=== PATIENT | male | born 1990 | race Caucasian/White ===

== ENCOUNTER 2020-05-03 13:50 | Emergency (ER) | payer SELFPAY ==
[2020-05-03 13:55] VITALS: BP 117/85; PULSE 81; RESP 16; TEMP 36.5; O2SAT 96; BMI 23.9
[2020-05-03 15:09] LABS: MANUAL DIFF FLAG NO
[2020-05-03 15:11] LABS: Basophils Percent Auto 0.6 % (0-2); Eosinophils Percent Auto 0.9 % (0-4); Hematocrit 47.1 % (42-52); Hemoglobin 15.5 g/dl (14.0-18.0); Lymphocytes Absolute Auto 1.1 X10*3/uL (1.2-4.9); Lymphocytes Percent Auto 32.7 % (20-40); Mean Corpuscular HGB Conc 32.9 g/dl (31.0-36.0); Mean Corpuscular Hemoglobin 29.2 pg (27.0-33.0); Mean Corpuscular Volume 88.7 fL (80-98); Mean Platelet Volume 9.5 fL (9.4-12.4); Monocytes Absolute Auto 0.4 X10*3/uL (0.1-1.2); Monocytes Percent Auto 10.9 % (2-11); Neutrophils Absolute Auto 1.8 X10*3/uL (2.0-8.3); Neutrophils Percent Auto 54.9 % (45-73); Platelet Count 221 X10*3/uL (160-400); Red Blood Count 5.31 X10*6/uL (4.60-5.80); Red Cell Distribution Width 12.3 % (11.0-16.0); White Blood Count 3.2 X10*3/uL (4.8-10.8)
[2020-05-03 15:38] LABS: Anion Gap 11 (12-20); Blood Urea Nitrogen 8 mg/dL (9-16); Calcium 9.6 mg/dL (8.4-10.2); Carbon Dioxide 29 mmol/L (22-29); Chloride 102 mmol/L (96-108); Creatinine Clr Calc Pharmacy 125.5; Estimated Glomerular Filt Rate > 60; Glucose Random 94 mg/dL (60-115); Lipase 18 U/L (8-78); Potassium 4.4 mmol/L (3.3-5.1); Sodium 138 mmol/L (135-145)
--- NOTE | 2020-05-03 16:35 | ED_ITS ---
HPI - Nausea/Vomiting/Diarrhea General Chief complaint: Nausea/Vomiting/Diarrhea Stated complaint: weakness, loss of appetite, abd pain Time Seen by Provider: 05/03/20 16:31 Source: patient Mode of arrival: ambulatory Limitations: no limitations History of Present Illness HPI Narrative: This is a 30-year-old male who otherwise described himself as relatively healthy history of celiac disease and appendectomy presenting with complaint of 2 days of epigastric discomfort with eating that makes him nauseated. States has not had any diarrhea last bowel movement was this morning and soft. He denies any recent travel, sick contacts, fever. Triage note reviewed he notes patient states he is unable to ?swallow fela d....feels like it gets stuck? tells me that he is able to drink water and eat soup since such however when he eats solids he will feel more nauseated and bloated in the of the gastroc. MD elicited complaint: nausea and vomiting Description of vomiting: food contents Associated nausea: Yes Associated abdominal pain: Yes Location of pain: epigastric Radiation: epigastric Pain consistency: intermittent Severity: mild Quality: aching Associated symptoms: denies other symptoms Related Data Previous Rx's Medication Instructions Recorded ondansetron HCl [Zofran] 4 mg PO Q8H PRN #10 tab 05/03/20 Allergies Allergy/AdvReac Type Severity Reaction Status Date / Time egg [EGG] Allergy Severe SWELLING, Verified 05/03/20 14:08 HIVES Review of Systems Review of Systems: Constitutional: No Weight loss, No Fever, No Chills, No Night Sweats, No Fatigue, No Malaise ENT/Mouth: No Hearing loss, No Ear Pain, No Nasal Congestion, No Sinus Pain, No Hoarseness, No sore throat, No Rhinorrhea, No Swallowing Difficulty Eyes: No Eye Pain, No Swelling, No Redness, No Foreign Body, No Discharge, No Vision Changes Cardiovascular: No Chest Pain, No SOB, No Dyspnea on Exertion, No Orthopnea, No Edema, No Palpitations Respiratory: No Cough, No Sputum, No Wheezing, No Smoke Exposure, No Dyspnea Gastrointestinal: As noted per HPI, no constipation, No Hematochezia, No Melena Genitourinary: No Dysuria, No Urinary Frequency, No Hematuria, No Urinary Incontinence, No Urgency, No Flank Pain, No Urinary Flow Changes, No Hesitancy Musculoskeletal: No joint pain, No Myalgias, No Joint Swelling Skin: No Skin Lesions, No rash Neuro: No Weakness, No Numbness, No Paresthesias, No Loss of Consciousness, No Dizziness, No Headache Psych: No Social Issues Heme/Lymph: No Bruising, No Bleeding,No Lymphadenopathy Endocrine: No Polyuria, No Polydipsia, No Temperature Intolerance Yes all other systems are reviewed and are negative Gastrointestinal: Gastrointestinal: Reports nausea PMFSH Past Medical History Medical History Celiac disease H/O iron deficiency anemia Surgical History History of appendectomy Social History Social History Alcohol intake: never Smoking Status: Never smoker Use of substances other than those prescribed or required for medical reasons: Yes Substance Use Type: Marijuana Advance Directives: No Advance Directives Information Provided: Yes Physical Exam Vital Signs: Vital Signs: Last Vital Signs Temp 97.7 F 05/03/20 13:55 Pulse 81 05/03/20 13:55 Resp 16 05/03/20 13:55 BP 117/85 05/03/20 13:55 Pulse Ox 96 05/03/20 13:55 Body Mass Index 23.9 Reviewed Const: Other: Walking, sitting up on side of the stretcher drinking bottled water. General: cooperative and healthy appearing; No acute distress or intoxicated appearing Nutritional Appearance: average body habitus Orientation/consciousness: patient oriented x3 HENMT: Head: Yes normal to inspection Ears: hearing grossly normal bilat erally Eyes: General: appearance normal, both eyes and all related structures Visual Martinez: normal visual martinez by confrontation Neck: Neck: Yes normal visual inspection, No positive Brudzinski's sign, No positive Kernig's sign and No tender Thyroid: Thyroid normal Chest: Chest palpation & inspection: normal inspection of the chest Resp: Effort & Inspection: normal respiratory effort Auscultation: clear to auscultation bilaterally Cardio: Jugular venous distension: no JVD Rhythm: regular rhythm Heart sounds: S1 normal heart sound present and S2 normal heart sound present GI: Inspection: Yes normal to inspection Palpation (GI): Soft to palpation, nontender, no guarding, not rigid, hepatosplenomegaly present and no masses Percussion: Yes normal to percussion Auscultation: normal bowel sounds : General: Yes no CVA tenderness Back/Spine/Pelvis: Back: no CVA tenderness Skin: General skin exam: no rashes or lesions noted Neuro: General: patient oriented x3 Extrem: General: Yes normal to inspection Course Course Course Narrative: AP consistent with gastritis versus gastroenteritis overall nontoxic appearing. Labs overall stable, COVID negative. He is currently eating and drinking without any evidence of food bolus or obstruction. Abdominal exam remains benign. Will discharge home with short course Zofran, clear return follow-up instructions. MDM - Nausea/Vomiting/Diarrhea Differential Diagnosis Differential diagnosis: Likely food poisoning and gastroenteritis; Unlikely traveler's diarrhea, clostridium difficile infection, drug-induced nausea and vomiting and dehydration Medical Records Attestation: I reviewed the patient's medical records. Lab Data Attestation: I reviewed the patient's lab results. Result diagrams: 05/03/20 15:04 05/03/20 15:04 Labs: Lab Results 05/03/20 05/03/20 05/03/20 Range/Units 15:04 15:04 15:04 WBC 3.2 L (4.8-10.8) X10*3/uL RBC 5.31 (4.60-5.80) X10*6/uL Hgb 15.5 (14.0-18.0) g/dl Hct 47.1 (42-52) % MCV 88.7 (80-98) fL MCH 29.2 (27.0-33.0) pg MCHC 32.9 (31.0-36.0) g/dl RDW 12.3 (11.0-16.0) % Plt Count 221 (160-400) X10*3/uL MPV 9.5 (9.4-12.4) fL Immature Gran % (Auto) 0.0 (0.0-0.4) % Neut % (Auto) 54.9 (45-73) % Lymph % (Auto) 32.7 (20-40) % [place] % (Auto) 10.9 (2-11) % Eos % (Auto) 0.9 (0-4) % Baso % (Auto) 0.6 (0-2) % Lymph # (Auto) 1.1 L (1.2-4.9) X10*3/uL [place] # (Auto) 0.4 (0.1-1.2) X10*3/uL Eos # (Auto) 0.0 (0.0-0.4) X10*3/uL Baso # (Auto) 0.0 (0.0-0.2) X10*3/uL Abs Immat Gran (auto) 0.00 (0.00-0.03) X10*3/uL Absolute Neuts (auto) 1.8 L (2.0-8.3) X10*3/uL Absolute Nucleated RBC 0.000 (0.0-0.012) X10*3/uL Nucleated RBC % (auto) 0.0 (0.0-0.2) /100WBC Hold Purple Top SEE NOTE Hold Blue Top Sodium 138 (135-145) mmol/L Potassium 4.4 (3.3-5.1) mmol/L Chloride 102 (96-108) mmol/L Carbon Dioxide 29 (22-29) mmol/L Anion Gap 11 L (12-20) BUN 8 L (9-16) mg/dL Creatinine 0.99 (0.5-1.4) mg/dL Estim Creat Clear Calc 125.5 Estimated GFR > 60 Random Glucose 94 (60-115) mg/dL Calcium 9.6 (8.4-10.2) mg/dL Total Bilirubin 1.1 H (0.0-1.0) mg/dL Direct Bilirubin 0.4 (0.0-0.5) mg/dL AST 23 (5-37) U/L ALT 22 (0-40) U/L Alkaline Phosphatase 77 (39-117) U/L Total Protein 8.3 H (6.5-8.0) g/dL Albumin 5.1 H (3.5-5.0) g/dL Lipase 18 (8-78) U/L Coronavirus (PCR) (Negative) Influenza Type A (PCR) (Negative) Influenza Type B (PCR) (Negative) RSV RNA Qual (PCR) (Negative) 05/03/20 05/03/20 Range/Units 15:04 16:50 WBC (4.8-10.8) X10*3/uL RBC (4.60-5.80) X10*6/uL Hgb (14.0-18.0) g/dl Hct (42-52) % MCV (80-98) fL MCH (27.0-33.0) pg MCHC (31.0-36.0) g/dl RDW (11.0-16.0) % Plt Count (160-400) X10*3/uL MPV (9.4-12.4) fL Immature Gran % (Auto) (0.0-0.4) % Neut % (Auto) (45-73) % Lymph % (Auto) (20-40) % [place] % (Auto) (2-11) % Eos % (Auto) (0-4) % Baso % (Auto) (0-2) % Lymph # (Auto) (1.2-4.9) X10*3/uL [place] # (Auto) (0.1-1.2) X10*3/uL Eos # (Auto) (0.0-0.4) X10*3/uL Baso # (Auto) (0.0-0.2) X10*3/uL Abs Immat Gran (auto) (0.00-0.03) X10*3/uL Absolute Neuts (auto) (2.0-8.3) X10*3/uL Absolute Nucleated RBC (0.0-0.012) X10*3/uL Nucleated RBC % (auto) (0.0-0.2) /100WBC Hold Purple Top Hold Blue Top SEE NOTE Sodium (135-145) mmol/L Potassium (3.3-5.1) mmol/L Chloride (96-108) mmol/L Carbon Dioxide (22-29) mmol/L Anion Gap (12-20) BUN (9-16) mg/dL Creatinine (0.5-1.4) mg/dL Estim Creat Clear Calc Estimated GFR Random Glucose (60-115) mg/dL Calcium (8.4-10.2) mg/dL Total Bilirubin (0.0-1.0) mg/dL Direct Bilirubin (0.0-0.5) mg/dL AST (5-37) U/L ALT (0-40) U/L Alkaline Phosphatase (39-117) U/L Total Protein (6.5-8.0) g/dL Albumin (3.5-5.0) g/dL Lipase (8-78) U/L Coronavirus (PCR) NEGATIVE (Negative) Influenza Type A (PCR) NEGATIVE (Negative) Influenza Type B (PCR) NEGATIVE (Negative) RSV RNA Qual (PCR) NEGATIVE (Negative) Discharge Plan Discharge Clinical Impression: Gastroenteritis Patient Disposition: Home, Self-Care Instructions: Acute Nausea and Vomiting (ED) Additional Instructions: Your blood work was overall reassuring Your COVID test was negative Gradually increase her diet as reviewed Return if any concerns or worsening symptoms Otherwise follow-up as instructed Thank you Prescriptions: New ondansetron HCl [Zofran] 4 mg tablet 4 mg PO Q8H PRN (Reason: nausea and vomiting) Qty: 10 RF: 0 Referrals: ED Physician,Generic [Emergency Provider] - 1 week (Your primary care doctor)
[2020-05-03 17:01] LABS: Alanine Aminotransferase 22 U/L (0-40); Albumin Level 5.1 g/dL (3.5-5.0); Alkaline Phosphatase 77 U/L (39-117); Aspartate Amino Transferase 23 U/L (5-37); Bilirubin Direct 0.4 mg/dL (0.0-0.5); Bilirubin Total 1.1 mg/dL (0.0-1.0); Total Protein 8.3 g/dL (6.5-8.0)
[2020-05-03 17:53] LABS: Influenza A PCR NEGATIVE (Negative); Influenza B PCR NEGATIVE (Negative); Resp Syncy Virus RNA Qual PCR NEGATIVE (Negative); SARS COV2 PCR INHOUSE NEGATIVE (Negative)
== END 2020-05-03 18:59 | disposition home or self-care (01) ==
PROVIDERS: Nurse Practitioner Primary Care; Emergency Provider Internal Medicine
DX: K52.9 Noninfective gastroenteritis and colitis, unspecified (principal); K90.0 Celiac disease; F12.90 Cannabis use, unspecified, uncomplicated; Z20.822 Contact with and (suspected) exposure to COVID-19
CPT/HCPCS: 0241U; 36415; 80048; 80076; 83690; 85025; 99283; 99284

== ENCOUNTER 2021-06-11 10:30 | Emergency (ER) | payer SELFPAY ==
[2021-06-11 10:41] VITALS: BP 120/82; PULSE 82; RESP 20; TEMP 35.9; O2SAT 98; BMI 19.9
[2021-06-11] MEDS: Lidocaine HCl 1 % MPF 5 ML VIAL SUBCUT (11:30)
--- NOTE | 2021-06-11 13:34 | ED_ITS ---
HPI - Ear Problem General Chief complaint: Ear Problems Stated complaint: Swollen earlobe Time Seen by Provider: 06/11/21 11:07 Source: patient Mode of arrival: ambulatory History of Present Illness HPI Narrative: 31-year-old male with a past medical history of celiac disease, iron deficiency anemia, presenting to the ED complaining of swollen, pain, and erythema to left ear x3 days. Denies trauma, injury, drainage from area, new piercing, drainage from ear, hearing loss, fever, chills Complaint: ear pain Location: left ear Duration: constant Related Data Previous Rx's Medication Instructions Recorded ondansetron HCl 4 mg tablet 4 mg PO Q8H PRN #10 tab 05/03/20 (Zofran) cephalexin 500 mg capsule 500 mg PO QID 7 Days #28 cap 06/11/21 doxycycline hyclate 100 mg tablet 100 mg PO BID 7 Days #14 tab 06/11/21 Allergies Allergy/AdvReac Type Severity Reaction Status Date / Time egg [EGG] Allergy Severe SWELLING, Verified 05/03/20 14:08 HIVES Review of Systems Review of Systems: Constitutional: No Fever, No Chills ENT/Mouth: + Ear Pain, No Nasal Congestion, No Sinus Pain, No Hoarseness, No sore throat, No Rhinorrhea, No Swallowing Difficulty Cardiovascular: No Chest Pain, No SOB Respiratory: No Cough, No Sputum, Gastrointestinal: No Nausea, No Vomiting, No Diarrhea, No Constipation, No Abdominal pain Genitourinary:, No Dysuria, No Urinary Frequency, No Flank Pain Musculoskeletal: No joint pain, No Myalgias, No Joint Swelling Skin: +Skin Lesions, No rash Neuro: No Weakness, No Numbness, No Paresthesias Yes all other systems are reviewed and are negative [facility] [place] Past Medical History Attestation statement: The following information was validated with the patient. Medical History Celiac disease H/O iron deficiency anemia Surgical History History of appendectomy Social History Social History Alcohol intake: never Substance Use Type: Marijuana Advance Directives: No Physical Exam Vital Signs: Vital Signs: Last Vital Signs Temp 96.7 F L 06/11/21 10:41 Pulse 82 06/11/21 10:41 Resp 20 06/11/21 10:41 BP 120/82 06/11/21 10:41 Pulse Ox 98 06/11/21 10:41 BMI result Body Mass Index 19.9 Const: General: cooperative, healthy appearing and no acute distress [place] ation/consciousness: patient oriented x3 Limitations: no limitations HEENT: Other: Please refer to imaged above, earlobe with notable fluctuant abscess, +pointing,+overlying erythema extending behind ear with tenderness. + tender to palpation. No streaking. No mastoid swelling Head: Yes normal to inspection Ears: hearing grossly normal bilaterally and TM's normal bilaterally General nose exam: Normal external nose present Face and sinus: Yes normal facial exam Eyes: General: appearance normal, both eyes and all related structures EOM: EOMs intact bilaterally Neck: Neck: Yes normal visual inspection, Yes no meningeal signs, Yes trachea midline, Yes supple, No anterior neck swelling and No midline deformity Resp: Effort & Inspection: normal respiratory effort, no respiratory distress and no stridor Cardio: Rate: regular rate Heart sounds: S1 normal heart sound present and S2 normal heart sound present Skin: Rashes: no rashes Wounds: no wounds Neuro: General: patient oriented x3 and no meningeal signs Gait exam (Neuro): Normal gait present Extrem: General: Yes normal to inspection Procedures Abscess I/D Site: other (ear) Side (if applicable): left Local Anesthetic: lidocaine 1% Amount of anesthesia used (mL): 3 Technique: incised with blade Sent for culture/gram staining?: No Packing used?: none MDM - Ear MDM Narrative Medical decision making narrative: 31-year-old male with a past medical history of celiac disease, iron deficiency anemia, presenting to the ED complaining of swollen, pain, and erythema to left ear x3 days. On exam vital signs stable, NAD, please refer to image above, concern for abscess with overlying cellulitis to left ear lobe. Low concern for mastoiditis or otitis Plan: I & D, p.o. antibiotics Medical Records Attestation: I reviewed the patient's medical records. Lab Data Attestation: I reviewed the patient's lab results. Discharge Plan Discharge Clinical Impression: Abscess of left earlobe, Cellulitis Patient Disposition: Home, Self-Care Instructions: Cellulitis (DC), Abscess (ED), Abscess Follow-up (ED) Additional Instructions: You have an abscess of your left ear that was drained today in the ED. It is also infected. Doxycycline and Keflex are antibiotics piece take as prescribed. It is normal for the area to slightly drain for the next 48 hours, if it begins to drain pus, you fevers, redness behind her ear is spreading or worsening, pain becomes unbearable please return to the emergency department Please take Tylenol Motrin for pain Please follow-up with her doctor for re-evaluation in 2-3 days. Prescriptions: New cephalexin 500 mg capsule 500 mg PO QID 7 Days Qty: 28 0RF doxycycline hyclate 100 mg tablet 100 mg PO BID 7 Days Qty: 14 0RF No Action ondansetron HCl [Zofran] 4 mg tablet 4 mg PO Q8H PRN (Reason: nausea and vomiting) Qty: 10 0RF Referrals: Physician,None [Primary Care Provider] - 3 days (For re-evaluation)
== END 2021-06-11 13:51 | disposition home or self-care (01) ==
PROVIDERS: Emergency Provider Emergency Medicine
DX: H66.42 Suppurative otitis media, unspecified, left ear (principal); H60.12 Cellulitis of left external ear
CPT/HCPCS: 69000; 99283; 99284

== ENCOUNTER 2021-10-14 09:07 | Emergency (ER) | payer MEDICAID, SELFPAY ==
--- NOTE | ~2021-10-14 | XR_ITS ---
EXAMINATION: XR CHEST CLINICAL INFORMATION: Shortness of breath COMPARISON: None TECHNIQUE: Frontal view of the chest was obtained. FINDINGS: Lungs grossly clear. Heart and pulmonary vessels normal. XR/XR chest 1V IMPRESSION: Unremarkable examination.
[2021-10-14 09:12] VITALS: BP 126/81; PULSE 78; RESP 16; TEMP 36.6; O2SAT 97
--- NOTE | 2021-10-14 09:27 | ED_ITS ---
HPI - Nausea/Vomiting/Diarrhea General Chief complaint: Nausea/Vomiting/Diarrhea Stated complaint: nauseous, feels like something is stuck in throat Time Seen by Provider: 10/14/21 09:24 Source: patient Mode of arrival: ambulatory Limitations: no limitations History of Present Illness MD elicited complaint: nausea, vomiting and abdominal pain Onset (ago): day(s) (3) Description of vomiting: watery Associated nausea: Yes Associated abdominal pain: Yes Location of pain: epigastric Pain consistency: intermittent Severity: moderate Quality: stabbing Exacerbating factors: eating Relieving factors: none Context: other (wakes up in the AM like this - shaky with nausea and vomiting) Associated symptoms: loss of appetite, malaise, nausea/vomiting, shortness of breath and anxiety Related Data Previous Rx's Medication Instructions Recorded ondansetron HCl 4 mg tablet 4 mg PO Q8H PRN nausea and 05/03/20 (Zofran) vomiting #10 tabs cephalexin 500 mg capsule 500 mg PO QID 7 days #28 caps 06/11/21 doxycycline hyclate 100 mg tablet 100 mg PO BID 7 days #14 tabs 06/11/21 metoclopramide HCl 10 mg tablet 10 mg PO TID PRN nausea and 10/14/21 (Reglan) vomiting #30 tabs omeprazole 20 mg capsule,delayed 20 mg PO DAILY #14 caps 10/14/21 release ondansetron 4 mg disintegrating 4 mg PO Q8H PRN nausea and 10/14/21 tablet vomiting #20 tabs Allergies Allergy/AdvReac Type Severity Reaction Status Date / Time egg [EGG] Allergy Severe SWELLING, Verified 05/03/20 14:08 BRISA Review of Systems Review of Systems: Constitutional : No Weight loss, No Fever, No Chills ENT/Mouth : No sore throat, No Rhinorrhea Eyes: No Swelling, No Redness Cardiovascular : No Chest Pain, pos SOB, NoEdema Respiratory : No Cough, No Sputum, No Wheezing Gastrointestinal : Positive Nausea, Positive Vomiting, no Diarrhea, positive abdominal Pain, No Hematochezia, No Melena Genitourinary : No Dysuria, No Urinary Frequency, No Hematuria, No Urgency Musculoskeletal : No joint pain, No Myalgias, No Joint Swelling Skin : No Skin Lesions, No rash Neuro : No Weakness, No Numbness, No Dizziness, No Headache Psych : No Anxiety/Panic, No Depression Heme/Lymph: No Bruising, No Lymphadenopathy Endocrine : No Polyuria, No Polydipsia All other systems reviewed and are negative. Gastrointestinal: Gastrointestinal: Reports nausea PMFSH Past Medical History Attestation statement: The following information was validated with the patient. Medical History (Updated 10/14/21 @ 12:29 by Rachel Flanagan DO) Celiac disease H/O iron deficiency anemia Pneumothorax Surgical History History of appendectomy Social History Social History (Updated 10/14/21 @ 09:52 by Rachel Flanagan DO) Alcohol intake: never Patient Tobacco Use Status: Never used Tobacco Use of substances other than those prescribed or required for medical reasons: Yes Substance Use Type: Marijuana Substance Use Frequency: Occasionally Advance Directives: No Advance Directives Information Provided: Yes Physical Exam Vital Signs: Vital Signs: Last Vital Signs Temp 98.2 F 10/14/21 11:13 Pulse 62 10/14/21 11:13 Resp 16 10/14/21 11:13 BP 128/84 10/14/21 11:13 Pulse Ox 94 10/14/21 11:13 O2 Del Method 10/14/21 11:13 BMI result Body Mass Index 20.0 Appearance: Alert. Oriented X3. No acute distress. Anxious Eyes: Pupils equal, round and reactive to light. ENT: Pharynx normal. Neck: Normal inspection. Neck supple. CVS: Normal heart rate and rhythm. Pulses normal. Respiratory: No respiratory distress. Breath sounds normal. Abdomen: Soft and ttp in epigastric area no rebound Skin: Skin warm and dry. Normal skin color. Normal skin turgor. Extremities: No lower extremity edema. No calf ttp Neuro: Oriented X 3. No motor deficit. No sensory deficit. Course Course Course Narrative: labs stable, not toxic, feels better - can be discharged at this time, no further emesis MDM - Nausea/Vomiting/Diarrhea MDM Narrative Medical decision making narrative: 31 yo male with hx of celiac disease comes in with 3 days of epigastric pain n/v and chills at this time labs, CXR, COVID swab - IVF, pepcid, reglan/benadryl - possible gastritis/GERD/pancreatitis. Lab Data Result diagrams: 10/14/21 09:50 10/14/21 09:50 Labs: Lab Results 10/14/21 10/14/21 10/14/21 Range/Units 09:46 09:50 09:50 WBC 3.5 L (4.8-10.8) X10*3/uL RBC 5.42 (4.60-5.80) X10*6/uL Hgb 16.0 (14.0-18.0) g/dl Hct 46.8 (42.0-52.0) % MCV 86.3 (80.0-98.0) fL MCH 29.5 (27.0-33.0) pg MCHC 34.2 (31.0-36.0) g/dl RDW 12.4 (11.0-16.0) % Plt Count 218 (160-400) X10*3/uL MPV 9.7 (9.4-12.4) fL Immature Gran % (Auto) 0.0 (0.0-0.4) % Neut % (Auto) 50.3 (45-73) % Lymph % (Auto) 37.6 (20-40) % [place] % (Auto) 9.2 (2-11) % Eos % (Auto) 2.0 (0-4) % Baso % (Auto) 0.9 (0-2) % Lymph # (Auto) 1.3 (1.2-4.9) X10*3/uL [place] # (Auto) 0.3 (0.1-1.2) X10*3/uL Eos # (Auto) 0.1 (0.0-0.4) X10*3/uL Baso # (Auto) 0.0 (0.0-0.2) X10*3/uL Abs Immat Gran (auto) 0.00 (0.00-0.03) X10*3/uL Absolute Neuts (auto) 1.8 L (2.0-8.3) x10*3/uL Absolute Nucleated RBC 0.000 (0.0-0.012) X10*3/uL Nucleated RBC % (auto) 0.0 (0.0-0.2) /100WBC Sodium 140 (135-145) mmol/L Potassium 3.9 (3.3-5.1) mmol/L Chloride 105 (96-108) mmol/L Carbon Dioxide 26 (22-29) mmol/L Anion Gap 13 (12-20) BUN 7 L (9-16) mg/dL Creatinine 1.01 (0.5-1.4) mg/dL Estim Creat Clear Calc 105.2 Estimated GFR > 60 Random Glucose 105 (60-115) mg/dL Calcium 9.1 (8.4-10.2) mg/dL Magnesium 1.9 (1.6-2.6) mg/dL Total Bilirubin 0.5 (0.0-1.0) mg/dL Direct Bilirubin 0.2 (0.0-0.5) mg/dL AST 19 (5-37) U/L ALT 19 (0-40) U/L Alkaline Phosphatase 88 (39-117) U/L Total Protein 7.4 (6.5-8.0) g/dL Albumin 4.4 (3.5-5.0) g/dL Lipase 18 (8-78) U/L COVID-19 (TONI) Negative (Negative) COVID-19 Clin Com See Note Discharge Plan Discharge Clinical Impression: Acute epigastric pain Vomiting Qualifiers: Vomiting type: unspecified Nausea presence: with nausea Qualified Code(s): R11.2 - Nausea with vomiting, unspecified Patient Disposition: Home, Self-Care Instructions: Acute Nausea and Vomiting (ED), Abdominal Pain (ED) Additional Instructions: return to ED for any worsening symptoms or concerns please follow up with GI doctor Prescriptions: New ondansetron 4 mg tablet,disintegrating 4 mg PO Q8H PRN (Reason: nausea and vomiting) Qty: 20 0RF metoclopramide HCl [Reglan] 10 mg tablet 10 mg PO TID PRN (Reason: nausea and vomiting) Qty: 30 0RF Rx Instructions: take if zofran isn't working omeprazole 20 mg capsule,delayed release(DR/EC) 20 mg PO DAILY Qty: 14 0RF No Action ondansetron HCl [Zofran] 4 mg tablet 4 mg PO Q8H PRN (Reason: nausea and vomiting) Qty: 10 0RF cephalexin 500 mg capsule 500 mg PO QID 7 Days Qty: 28 0RF doxycycline hyclate 100 mg tablet 100 mg PO BID 7 Days Qty: 14 0RF Referrals: Selma Brody MD [Physician] - 2 weeks Stand Alone Forms: Work/School Release
[2021-10-14 09:56] LABS: MANUAL DIFF FLAG NO
[2021-10-14 09:57] LABS: Basophils Percent Auto 0.9 % (0-2); Eosinophils Absolute Auto 0.1 X10*3/uL (0.0-0.4); Hematocrit 46.8 % (42.0-52.0); Lymphocytes Absolute Auto 1.3 X10*3/uL (1.2-4.9); Lymphocytes Percent Auto 37.6 % (20-40); Mean Corpuscular HGB Conc 34.2 g/dl (31.0-36.0); Mean Corpuscular Hemoglobin 29.5 pg (27.0-33.0); Mean Corpuscular Volume 86.3 fL (80.0-98.0); Mean Platelet Volume 9.7 fL (9.4-12.4); Monocytes Absolute Auto 0.3 X10*3/uL (0.1-1.2); Monocytes Percent Auto 9.2 % (2-11); Neutrophils Absolute Auto 1.8 x10*3/uL (2.0-8.3); Neutrophils Percent Auto 50.3 % (45-73); Platelet Count 218 X10*3/uL (160-400); Red Blood Count 5.42 X10*6/uL (4.60-5.80); Red Cell Distribution Width 12.4 % (11.0-16.0); White Blood Count 3.5 X10*3/uL (4.8-10.8)
[2021-10-14 10:13] LABS: Alanine Aminotransferase 19 U/L (0-40); Albumin Level 4.4 g/dL (3.5-5.0); Alkaline Phosphatase 88 U/L (39-117); Anion Gap 13 (12-20); Aspartate Amino Transferase 19 U/L (5-37); Bilirubin Direct 0.2 mg/dL (0.0-0.5); Bilirubin Total 0.5 mg/dL (0.0-1.0); Blood Urea Nitrogen 7 mg/dL (9-16); Calcium 9.1 mg/dL (8.4-10.2); Carbon Dioxide 26 mmol/L (22-29); Chloride 105 mmol/L (96-108); Creatinine Clr Calc Pharmacy 105.2; Estimated Glomerular Filt Rate > 60; Glucose Random 105 mg/dL (60-115); Lipase 18 U/L (8-78); Magnesium 1.9 mg/dL (1.6-2.6); Potassium 3.9 mmol/L (3.3-5.1); Sodium 140 mmol/L (135-145); Total Protein 7.4 g/dL (6.5-8.0)
[2021-10-14 10:18] LABS: COVID-19 Test Negative (Negative)
[2021-10-14] MEDS: diphenhydrAMINE HCL 50 MG/ML VIAL 25 MG IVPUSH (11:07)
[2021-10-14] MEDS: Lactated Ringers 1,000 ML 999 ML IV (11:08)
[2021-10-14] MEDS: Famotidine/PF 20 MG/2 ML VIAL IVPUSH (11:08)
[2021-10-14 11:13] VITALS: BP 128/84; PULSE 62; RESP 16; TEMP 36.8; O2SAT 94
--- NOTE | 2021-10-14 11:17 | PC.NURSE ---
patient a/ox4 . pearrlla . lungs clears . heart beat regular at 65 beats skin warm and appropriate for ethnicity . abdomen soft and patient reports rebound tenderness on palpitation . hypoactive bowel sounds noted in all quadrants . patient reports bowel movement two days ago . Iv placed . medication administered as ordered . patient aware of plan of care .
[2021-10-14 13:16] VITALS: BP 124/83; PULSE 61; RESP 14
== END 2021-10-14 13:17 | disposition home or self-care (01) ==
PROVIDERS: Emergency Provider Emergency Medicine
DX: R11.2 Nausea with vomiting, unspecified (principal); R06.02 Shortness of breath; R10.13 Epigastric pain; Z20.822 Contact with and (suspected) exposure to COVID-19; Z79.899 Other long term (current) drug therapy
CPT/HCPCS: 71045; 80048; 80076; 83690; 83735; 85025; 87635; 96374; 96375; 99284; J1200

== ENCOUNTER 2022-05-31 22:17 | Emergency (ER) | payer OTHER, SELFPAY ==
--- NOTE | ~2022-05-31 | XR_ITS ---
EXAMINATION: XR ANKLE, LEFT CLINICAL INFORMATION: Pain COMPARISON: Ankle radiographs 12/08/2013 TECHNIQUE: Three views of the left ankle. FINDINGS: Marked soft tissue swelling overlying the lateral aspect of the ankle. There is no definite acute fracture identified however given degree of soft tissue swelling a radiographically occult nondisplaced distal fibular fracture would be difficult to exclude. Achilles tendon enthesopathy. No tibiotalar joint effusion. Ankle mortise is congruent. Joint spaces are maintained. XR/XR ankle LT min 3V IMPRESSION: Marked soft tissue swelling overlying the lateral aspect of the ankle. There is no definite acute fracture identified however given degree of soft tissue swelling a radiographically occult nondisplaced distal fibular fracture would be difficult to exclude. Consider follow-up radiographs in 2 weeks to assess for any interval healing of a radiographically occult fracture.
[2022-05-31 22:29] VITALS: BP 120/71; PULSE 102; RESP 18; TEMP 36.4; O2SAT 97; BMI 21.1
--- NOTE | 2022-06-01 00:22 | ED.LOWEXIN ---
HPI - Extremity Injury (Lower) General Chief Complaint: Extremity Injury, Lower Stated Complaint: swollen left ankle Time Seen by Provider: 06/01/22 00:22 Source: patient Mode of arrival: wheelchair Limitations: no limitations History of Present Illness HPI Narrative: 32-year-old male presents with left ankle pain and swelling after rolling his ankle while playing basketball earlier today. Patient is unable to bear weight. MD complaint: ankle injury Onset (ago): hour(s) (Within the hour of arrival) Injury: Left: ankle Type of Injury: inversion Place: street/outdoors Severity: moderate Severity scale (1-10): 7 Relieving factors: cold therapy, immobilization and rest Exacerbating factors: weight bearing, movement and palpation Context: direct blow and jumping Associated symptoms: snap/pop sensation and unable to bear weight Other symptoms: none Treatments prior to arrival: cold therapy and NSAIDS Related Data Previous Rx's Medication Instructions Recorded ondansetron HCl 4 mg tablet 4 mg PO Q8H PRN nausea and 05/03/20 (Zofran) vomiting #10 tabs metoclopramide HCl 10 mg tablet 10 mg PO TID PRN nausea and 10/14/21 (Reglan) vomiting #30 tabs omeprazole 20 mg capsule,delayed 20 mg PO DAILY #14 caps 10/14/21 release ondansetron 4 mg disintegrating 4 mg PO Q8H PRN nausea and 10/14/21 tablet vomiting #20 tabs Allergies Allergy/AdvReac Type Severity Reaction Status Date / Time egg [EGG] Allergy Severe SWELLING, Verified 05/31/22 22:37 HIVES Review of Systems Review of Systems: Constitutional: No Fever, No Chills Cardiovascular: No Chest Pain, No SOB Respiratory: No Cough, No Dyspnea Gastrointestinal: No Nausea, No Vomiting, No Diarrhea, No abdominal Pain Genitourinary: No Dysuria, No Hematuria Musculoskeletal: positive left ankle swelling and pain, No Myalgias Skin: No Skin lacerations, No rash Neuro: No Weakness, No Numbness, No Paresthesias, No Dizziness, No Headache Yes all other systems are reviewed and are negative [facility] Past Medical History Attestation statement: The following information was validated with the patient. Source: old records reviewed Medical History Asthma Celiac disease H/O iron deficiency anemia Pneumothorax Surgical History History of appendectomy Family History Family History Father HTN (hypertension) High cholesterol Mother Clotting disorder Social History Social History Alcohol intake: never Patient Tobacco Use Status: Never used Tobacco e-Cigarette/Vaping Use: Never Used Substance Use Type: Marijuana Advance Directives: No Advance Directives Information Provided: No service: No Current occupational status: employed Current occupational exposures/hazards: No Cognitive needs: No Hearing needs: No Vision needs: No Physical Exam Vital Signs: Vital Signs: Last Vital Signs Temp 98.0 F 06/01/22 00:32 Pulse 100 06/01/22 00:32 Resp 17 06/01/22 00:32 BP 123/81 06/01/22 00:32 Pulse Ox 97 06/01/22 00:32 O2 Del Method Room Air 06/01/22 00:32 BMI result Body Mass Index 21.1 Appearance: Alert. Oriented X3. No acute distress. Eyes: Pupils equal, round and reactive to light. Neck: Normal inspection. Neck supple. CVS: Normal heart rate and rhythm. Pulses normal. Respiratory: No respiratory distress. Breath sounds normal. Skin: Skin warm and dry. Normal skin color. Normal skin turgor. Extremities: Swelling to the lateral malleolar process to the left side. Tenderness noted to the malleolar process, lateral 5th metatarsal. Decreased flexion extension and internal external rotation secondary to swelling and pain. Neurovascularly intact. Brisk capillary refill and equal pulses bilaterally. Neuro: No motor deficit. No sensory deficit. Cranial nerves 2-12 intact. Course Course Course Narrative: 32-year-old male presents with left ankle swelling and pain after rolling it playing basketball earlier today. He is unable to bear weight, he does have significant swelling to left lateral malleolar process with 5th metatarsal tenderness to minimal palpation. Patient had 800 mg of ibuprofen, patient has decreased flexion extension internal external rotation of the left lower extremity. No other injuries reported. Brisk capillary refill, equal pulses, and neurovascularly intact. X-rays are pending. 01:23 no definite acute fracture however with the degree of swelling occult nondisplaced distal fib fracture versus a Lisfranc fracture cannot be excluded. Could possibly also be a grade 3 sprain. Will please patient in a walker boot, crutches for ambulation, nonweightbearing, rest ice and elevation, Tylenol and Motrin. Will have patient follow up with Orthopedics in fracture clinic. Patient verbalized understanding of discharge instructions. Verbalized understandings of signs and symptoms indicating need for emergent intervention. Medical Decision Making Differential Diagnosis Differential Diagnoses: The differential diagnosis associated with the presentation includes Fracture, dislocation, tendon injury Independent Interpretation I performed an independent interpretation of an: Plain X-Ray Radiology Impression Discussion of test interpretation with radiology: I have reviewed the radiologist's reading. Radiologist Impression: EXAMINATION: XR ANKLE, LEFT CLINICAL INFORMATION: Pain? COMPARISON: Ankle radiographs 12/08/2013? TECHNIQUE: Three views of the left ankle. FINDINGS: Marked soft tissue swelling overlying the lateral aspect of the ankle. There is no definite acute fracture identified however given degree of soft tissue swelling a radiographically occult nondisplaced distal fibular fracture would be difficult to exclude.? Achilles tendon enthesopathy. No tibiotalar joint effusion. Ankle mortise is congruent. Joint spaces are maintained. XR/XR ankle LT min 3V IMPRESSION: Marked soft tissue swelling overlying the lateral aspect of the ankle. There is no definite acute fracture identified however given degree of soft tissue swelling a radiographically occult nondisplaced distal fibular fracture would be difficult to exclude. Consider follow-up radiographs in 2 weeks to assess for any interval healing of a radiographically occult fracture. External Record Review External record reviewed: Outpatient record and Prior outpatient labs Prescription Management I considered prescription management with: Pain Medication Tylenol, Motrin Discharge Plan Discharge Clinical Impression: Fracture of distal end of fibula, Grade 3 ankle sprain Patient Disposition: Home, Self-Care Instructions: Ankle Sprain (ED), Crutch Instructions (ED), Ice Pack Application (ED), R.I.C.E. Treatment (ED), Walking Boot (ED), Leg Fracture (ED) Additional Instructions: You were evaluated for lower leg pain and swelling. Your left ankle it has a suspected fracture. You must follow up with Orthopedics do have repeat x-rays. This could possibly be a distal fibular fracture versus a Lisfranc fracture. Please do not bear any weight on your extremity. You must use crutches to walk. You may consider a knee Rollator for easier mobilization. Alternate Tylenol 650 mg every 6 hours and Motrin 600 mg every 6 hours as needed for pain and fever management. Consider taking these medications 3 hours apart so you have pain and fever management every 3 hours. Write down what time you take these medications to prevent accidental overdose. Motrin is the same medication as Advil and ibuprofen. Tylenol is the same medication as acetaminophen. Rest ice and elevate the extremity to help reduce swelling and pain. I have referred you to orthopedics, please follow-up in fracture clinic. Thank you for choosing this emergency department for evaluation. Please follow-up with primary care physician as needed. Return to the emergency department for any new, concerning, or worsening symptoms. Prescriptions: No Action ondansetron HCl [Zofran] 4 mg tablet 4 mg PO Q8H PRN (Reason: nausea and vomiting) Qty: 10 0RF ondansetron 4 mg tablet,disintegrating 4 mg PO Q8H PRN (Reason: nausea and vomiting) Qty: 20 0RF metoclopramide HCl [Reglan] 10 mg tablet 10 mg PO TID PRN (Reason: nausea and vomiting) Qty: 30 0RF Rx Instructions: take if zofran isn't working omeprazole 20 mg capsule,delayed release(DR/EC) 20 mg PO DAILY Qty: 14 0RF Referrals: Oliver Knapp PA-C [Physician Front Office Representative] - 3 days (Possible distal fib fracture versus Lisfranc versus grade 3 sprain) Stand Alone Forms: Work/School Release
[2022-06-01 00:32] VITALS: BP 123/81; PULSE 100; RESP 17; TEMP 36.7; O2SAT 97
--- NOTE | 2022-06-01 01:43 | PC.NURSE ---
late entry- this rn assumed care of pt @ 0030. pt brought back to 6h bed via wheelchair. family at bedside. ed provider at bedside. pt calm and cooperative. pt unable to bear weight on L foot due to pain 10/08
--- NOTE | 2022-06-01 01:54 | PC.NURSE ---
Addendum entered by Cielo Ortega 06/01/22 01:56: pt able to move all digits on left foot Original Note: pt family at bedside at discharge. walking boot and crutches provided to pt. cms intact. pt denies pain/ discomfort while in boot. pt provided with discharge packet. pt verbalized understanding of discharge plan
== END 2022-06-01 01:58 | disposition home or self-care (01) ==
PROVIDERS: Emergency Provider Emergency Medicine Emergency Medical Services; PCP Family Medicine
DX: S82.832A Other fracture of upper and lower end of left fibula, initial encounter for closed fracture (principal); X50.1XXA Overexertion from prolonged static or awkward postures, initial encounter; Y93.67 Activity, basketball; Y92.310 Basketball court as the place of occurrence of the external cause; Y99.9 Unspecified external cause status; Z79.899 Other long term (current) drug therapy
CPT/HCPCS: 73610; 99283; 99284

== ENCOUNTER 2022-06-02 08:54 | Outpatient (REF) | payer OTHER, SELFPAY ==
--- NOTE | ~2022-06-02 | XR_ITS ---
EXAMINATION: XR ANKLE, LEFT CLINICAL INFORMATION: Pain. COMPARISON: Left ankle 05/31/2022. TECHNIQUE: AP, lateral, and mortise views of the left ankle. FINDINGS: There is moderate lateral malleolar soft tissue swelling. The ankle mortise and subtalar joints are normal. No acute fracture, dislocation or subluxation seen. XR/XR ankle LT min 3V IMPRESSION: Moderate lateral malleolar soft tissue swelling. The swelling has significantly improved since 05/31/2022. No visible acute fracture or dislocation seen.
== END 2022-06-02 08:55 | disposition home or self-care (01) ==
LOC: HO.HOSX 08:54
PROVIDERS: Visit Provider Physician Assistant
DX: S93.402A Sprain of unspecified ligament of left ankle, initial encounter (principal); X58.XXXA Exposure to other specified factors, initial encounter; Y93.67 Activity, basketball; Y92.9 Unspecified place or not applicable; Y99.9 Unspecified external cause status
CPT/HCPCS: 73610; 99202

== ENCOUNTER 2022-06-22 12:49 | Outpatient (REF) | payer OTHER, SELFPAY ==
[2022-06-22 14:08] LABS: MANUAL DIFF FLAG NO
[2022-06-22 14:13] LABS: Appearance Urine Clear; Color Urine Yellow; Glucose Urine UA Negative (Negative); Leukocyte Esterase Urine Trace (Negative); Nitrite Urine Negative (Negative); UMIC TRIGGER UA YES; Urine Blood Negative (Negative); Urine Ketones Negative (Negative); Urine Protein Negative (Neg-Trace)
[2022-06-22 14:16] LABS: Bacteria Urine None Seen (None Seen); Hyaline Casts Urine 0-2 /LPF (0-2); RBC Urine 0-2 /HPF (0-2); Squamous Epithelial Cell Urine 0-2 /HPF (0-2); WBC Urine 0-5 /HPF (0-5)
[2022-06-22 14:38] LABS: Alanine Aminotransferase 19 U/L (0-40); Albumin Level 4.3 g/dL (3.5-5.0); Alkaline Phosphatase 93 U/L (39-117); Anion Gap 10 (12-20); Aspartate Amino Transferase 17 U/L (5-37); Bilirubin Total 0.4 mg/dL (0.0-1.0); Blood Urea Nitrogen 5 mg/dL (9-16); Calcium 9.3 mg/dL (8.4-10.2); Carbon Dioxide 28 mmol/L (22-29); Chloride 107 mmol/L (96-108); Cholesterol 156 mg/dL; Estimated Glomerular Filt Rate > 60; Glucose Fasting 92 mg/dL (60-99); HDL Cholesterol 50 mg/dL; Iron 78 mcg/dL (45-160); LDL Cholesterol Calculated 96 mg/dl; Percent Iron Saturation 25 % (15-50); Potassium 4.4 mmol/L (3.3-5.1); Sodium 141 mmol/L (135-145); Total Iron Binding Capacity 315 mcg/dL (228-428); Triglycerides 54 mg/dL; Unsaturated Iron Binding 237 ug/dL
[2022-06-22 14:40] LABS: Basophils Percent Auto 0.8 % (0-2); Eosinophils Absolute Auto 0.2 X10*3/uL (0.0-0.4); Eosinophils Percent Auto 4.3 % (0-4); Hematocrit 45.6 % (42.0-52.0); Hemoglobin 15.2 g/dl (14.0-18.0); Lymphocytes Absolute Auto 1.5 X10*3/uL (1.2-4.9); Lymphocytes Percent Auto 38.9 % (20-40); Mean Corpuscular HGB Conc 33.3 g/dl (31.0-36.0); Mean Corpuscular Hemoglobin 29.1 pg (27.0-33.0); Mean Corpuscular Volume 87.4 fL (80.0-98.0); Mean Platelet Volume 10.2 fL (9.4-12.4); Monocytes Absolute Auto 0.3 X10*3/uL (0.1-1.2); Monocytes Percent Auto 6.9 % (2-11); Neutrophils Absolute Auto 1.8 x10*3/uL (2.0-8.3); Neutrophils Percent Auto 49.1 % (45-73); Platelet Count 251 X10*3/uL (160-400); Red Blood Count 5.22 X10*6/uL (4.60-5.80); Red Cell Distribution Width 12.1 % (11.0-16.0); White Blood Count 3.8 X10*3/uL (4.8-10.8)
[2022-06-22 14:54] LABS: TSH reflex Free T4 0.24 uIU/mL (0.32-4.0)
[2022-06-22 15:29] LABS: CT PCR NOT DETECTED (Not Detect.); NG PCR NOT DETECTED (Not Detect.)
[2022-06-22 16:23] LABS: Free T4 (Free Thyroxine) 0.94 ng/dL (0.71-1.85)
[2022-06-24 03:43] LABS: Syphilis Screen Nonreactive (Nonreactive)
[2022-06-24 03:55] LABS: HBS Num1 1.24 mIU/mL (0-7.99); HBc Num1 0.11 S/CO (0.00-0.79); HIV AB/AG Nonreactive (Nonreactive); HIV Num 1 0.07 S/CO (0.00-0.99); Hepatitis B Core Antibody Nonreactive (Nonreactive); Hepatitis B Surface Antigen Negative (Negative); ~HepC Num1 0.12 S/CO (0.00-0.79); ~Hepatitis B Surface Antibody NONREACTIVE (Nonreactive); ~Hepatitis C Antibody Nonreactive (Nonreactive)
== END 2022-06-22 12:50 | disposition home or self-care (01) ==
LOC: HO.WFDLDS 12:49
PROVIDERS: Visit Provider Family Medicine
DX: Z00.00 Encounter for general adult medical examination without abnormal findings (principal); Z86.2 Personal history of diseases of the blood and blood-forming organs and certain disorders involving the immune mechanism; Z20.2 Contact with and (suspected) exposure to infections with a predominantly sexual mode of transmission
CPT/HCPCS: 0353U; 36415; 80053; 80061; 81001; 81003; 83540; 84439; 84443; 85025; 86704; 86706; 86780; 86803; 87340; 87389

== ENCOUNTER 2022-07-02 10:17 | Outpatient (REF) | payer OTHER, SELFPAY ==
--- NOTE | ~2022-07-02 | XR_ITS ---
EXAMINATION: XR ANKLE, LEFT CLINICAL INFORMATION: Pain COMPARISON: Previous x-ray most recent May 2022 TECHNIQUE: AP, lateral, and mortise views of the left ankle. FINDINGS: Bone alignment is normal. No fracture or dislocation. The ankle mortise is normal. There is a small osteophyte arising from the anterior talus appreciated on the lateral view. There is interval decrease in soft tissue swelling. There may still be an ankle joint effusion. XR/XR ankle LT min 3V IMPRESSION: Interval decrease in soft tissue swelling. No fracture seen.
== END 2022-07-02 10:18 | disposition home or self-care (01) ==
LOC: HO.HOSX 10:17
PROVIDERS: Visit Provider Physician Assistant
DX: S93.402A Sprain of unspecified ligament of left ankle, initial encounter (principal)
CPT/HCPCS: 73610; 99212

== ENCOUNTER 2022-07-15 09:51 | Outpatient (RCR) | payer OTHER, SELFPAY ==
--- NOTE | 2022-07-15 12:46 | MHC.PT.EP ---
[facility] [place] Office [place] Office [place] Office [address] [phone] F: [phone] F: [phone] F: [phone] F: [phone] Physical Therapy Plan of Care Date of Evaluation: Date of Surgery: NA Diagnosis: SEVERE SPRAIN L ANKLE Assessment: Pt IS 32 YO M REFERRED TO PT FROM ORTHO WITH L ANKLE SPRAIN WHICH OCCURED ON 06/01/22 WHILE PLAYING BASKETBALL (ROLLED ANKLE) . REPORT FROM XRAY IN HOSPITAL DID NOT SAY DEFINITE FX, BUT BECAUSE OF THE AMNT OF SWELLING A DISTAL FIB FX WAS LIKELY. Pt PRESENTS WITH DECREASED L ANKLE ROM AND STRENGTH WITH LAT MALLEOUS AREA SWELLING WITH PAIN AND LIMITED BASKETBALL PLAY. Pt WAS INITIALLY IN BOOT, BUT NOW WEARING LACE UP VELCRO ANKLE SUPPORT WITH GOOD RESULTS. SHOULD BENEFIT FROM PT TO HELP WITH ROM, STRENGTH, PROPRIOCEPTION AND PAIN MANAGEMENT Frequency and Duration: The patient will be seen 2X/WK X 6 WKS Short Term Goals: 1. DECREASED SWELLING NOTED L LAT ANKLE 2. INCREASED AWARENESS ANKLE CARE 3. Pt TO REPORT IMPROVED CONFIDENCE IN L ANKLE Intermediate Goals: 1. I HEP WITH DC EX PLAN 2. DECREASED L ANKLE PAIN WITH RETURN TO BASKETBALL 3. INCREASED L ANKLE ROM AT LEAST 5 DEGREES T/O Treatment Plan: Modalities to reduce pain, spasms and effusion. Manual therapy to restore motion and function. Therapeutic exercise to improve strength and flexibility. Neuromuscular re-education for posture and balance. Therapeutic activities to return to functional activities of daily living. Electronically signed by: PANKAJ ROSE PT Please sign and return to therapist. Thank you for your referral.
--- NOTE | 2022-09-21 16:26 | MHC.PT.DC ---
[facility] [place] Office [place] Office [place] Office [address] [phone] F: [phone] F: [phone] F: [phone] F: [phone] Physical Therapy Discharge Report Diagnosis: SEVERE SPRAIN L ANKLE Date of Surgery: NA Date of Evaluation: 07/15/22 Date of Discharge: 09/21/22 Treatments to Date: 1 Cancellations to Date: No Shows to Date: 2 Discharge Status: Visit Non-compliance Discharge Summary: Pt SEEN FOR IN [facility] ONLY (NO SHOW X 2 APPTS) PER ASSESSMENT AT [facility]: Pt IS 32 YO M REFERRED TO PT FROM ORTHO WITH L ANKLE SPRAIN WHICH OCCURED ON 06/01/22 WHILE PLAYING BASKETBALL (ROLLED ANKLE) . REPORT FROM XRAY IN HOSPITAL DID NOT SAY DEFINITE FX, BUT BECAUSE OF THE AMNT OF SWELLING A DISTAL FIB FX WAS LIKELY. Pt PRESENTS WITH DECREASED L ANKLE ROM AND STRENGTH WITH LAT MALLEOUS AREA SWELLING WITH PAIN AND LIMITED BASKETBALL PLAY. Pt WAS INITIALLY IN BOOT, BUT NOW WEARING LACE UP VELCRO ANKLE SUPPORT WITH GOOD RESULTS. SHOULD BENEFIT FROM PT TO HELP WITH ROM, STRENGTH, PROPRIOCEPTION AND PAIN MANAGEMENT Electronically signed by: PANKAJ ROSE PT Please sign and return to therapist. Thank you for your referral.
== END 2022-09-21 16:27 | disposition home or self-care (01) ==
LOC: HO.PTWFD 09:51
PROVIDERS: PCP Family Medicine; Visit Provider Physician Assistant
DX: S93.402A Sprain of unspecified ligament of left ankle, initial encounter (principal)
CPT/HCPCS: 97110; 97161; 97535

== ENCOUNTER 2023-01-04 09:10 | Emergency (ER) | payer OTHER, SELFPAY ==
--- NOTE | ~2023-01-04 | CT_ITS ---
EXAMINATION: CT ABDOMEN AND PELVIS WITH CONTRAST CLINICAL INFORMATION: Severe upper abdominal pain. COMPARISON: 05/21/2010 TECHNIQUE: Multidetector volumetric images were obtained from the superior aspect of the liver through the pubic symphysis following administration 85 mL of Omnipaque 350 intravenous contrast. Sagittal and coronal reformatted images were obtained on the technologist's workstation. Oral contrast: No This CT examination was performed using dose optimization techniques as appropriate, variously including the following: *Automated exposure control *Adjustment of mA and/or kV according to patient size (this includes techniques or standardized protocols for targeted exams where dose is matched to indication/reason for exam; i.e. extremities or head) *Use of iterative reconstruction technique DLP: 470 mGy-cm FINDINGS: LUNG BASES: The visualized lung bases are unremarkable. LIVER, GALLBLADDER, AND BILIARY TREE: The liver is normal in size, shape, and attenuation. No biliary ductal dilatation is present. The gallbladder is unremarkable with no evidence of radiopaque gallstones, gallbladder wall thickening, or obvious pericholecystic inflammatory changes. PANCREAS: Unremarkable. SPLEEN: Unremarkable. ADRENAL GLANDS: Unremarkable. KIDNEYS AND URETERS: The kidneys are symmetric in size and enhancement. Cortical scarring lower pole left kidney. No hydronephrosis or perinephric fluid collection. BLADDER: Unremarkable. GASTROINTESTINAL TRACT: Possible gastric wall thickening. Small and large bowel loops are of normal caliber. No small bowel obstruction. The appendix is surgically absent. ABDOMINAL WALL: No significant hernia is appreciated. LYMPH NODES: Enlarged bilateral inguinal lymph nodes.. VASCULAR: Normal caliber abdominal aorta. PELVIC VISCERA: Unremarkable. OSSEOUS STRUCTURES: No destructive bone lesions. At the right eccentric superior margin of the gluteal cleft there is a complex fluid collection measuring 2.9 x 1.9 x 3.9 cm. There is surrounding infiltration of the subcutaneous tissues extending inferiorly. There is overlying skin thickening. CT/CT abdomen pelvis w IV con IMPRESSION: Complex fluid collection seen at the right eccentric superior margin of the gluteal cleft extending inferiorly measuring 2.9 x 1.9 x 3.9 cm. Associated infiltration of the subcutaneous fat and overlying skin thickening. Cellulitis and abscess should be considered. Possible gastric wall thickening. Consider correlation with direct visualization
[2023-01-04 09:17] VITALS: BP 122/83; PULSE 69; RESP 16; TEMP 36.9; O2SAT 98
[2023-01-04 09:25] VITALS: BP 122/83; PULSE 69; RESP 16; TEMP 36.9; O2SAT 98; BMI 20.4
--- NOTE | 2023-01-04 09:30 | ED.ABDPAIN ---
HPI - Abdominal Pain General Chief Complaint: Abdominal Pain Stated Complaint: abd pain Time Seen by Provider: 01/04/23 09:27 Source: patient Mode of arrival: ambulatory History of Present Illness HPI narrative: 32 years old male presented to the emergency department complaining of periumbilical abdominal pain times 48 hours. He has history of celiac disease, he is status post appendectomy. Denies any vomiting any diarrhea MD elicited complaint: abdominal pain Pertinent past history: other (celiac disease/appendectomy) Onset (ago): day(s) (2) Pain Consistency: constant Location: periumbilical Severity: moderate Quality: cramping Radiation: epigastric Migration to: epigastric Exacerbating factors: nothing Relieving factors: nothing Related Data Home Medications Medication Instructions Recorded Confirmed ibuprofen 800 mg tablet 800 mg PO Q8H 06/02/22 01/27/23 Previous Rx's Medication Instructions Recorded calcium polycarbophil 625 mg 625 mg PO DAILY 30 days #30 tabs 07/08/22 tablet (FiberCon) omeprazole 20 mg capsule,delayed 20 mg PO DAILY #30 caps 01/04/23 release Allergies Allergy/AdvReac Type Severity Reaction Status Date / Time egg [EGG] Allergy Severe SWELLING, Verified 07/08/22 10:36 HIVES Review of Systems Constitutional: Reports no additional constitutional complaints Cardiovascular: Reports no additional cardiovascular complaints Musculoskeletal: Reports no additional musculoskeletal complaints PMFSH Past Medical History Medical History Abdominal pain Asthma Pneumothorax Celiac disease H/O iron deficiency anemia Surgical History History of appendectomy Family History Family History Father HTN (hypertension) High cholesterol Mother Clotting disorder Social History Social History (Updated 01/06/23 @ 11:16 by ABRIL Duran) Housing: Apartment Alcohol intake: current Alcohol intake frequency: holidays/special occasions only Alcohol type: beer Patient Tobacco Use Status: Never used Tobacco e-Cigarette/Vaping Use: Never Used Substance Use Type: Marijuana service: No Current occupational status: employed Current occupational exposures/hazards: No Cognitive needs: No Hearing needs: No Vision needs: No Physical Exam ED Vital Signs: Vital Signs - 24 hr 01/04/23 09:17 01/04/23 09:25 01/04/23 12:00 Temperature 98.4 F 98.4 F Pulse Rate 69 69 80 Respiratory Rate 16 16 18 Blood Pressure 122/83 122/83 112/72 Pulse Oximetry 98 98 100 Oxygen Delivery Method Room Air Room Air Room Air BMI result Body Mass Index 20.4 Const Orientation/consciousness: oriented to person and patient oriented x3 HENMT Head: Yes normal to inspection Ears: hearing grossly normal bilaterally General nose exam: Normal external nose present Face and sinus: Yes normal facial exam Mouth: Normal oral and palatal mucosa present Throat: Yes posterior oropharynx normal Neck Neck: Yes normal visual inspection Resp Effort & Inspection: normal respiratory effort Cardio Jugular venous distension: no JVD Rate: regular rate Rhythm: regular rhythm GI Inspection: Yes normal to inspection Palpation (GI): Soft to palpation, not firm and nontender Percussion: Yes normal to percussion Auscultation: normal bowel sounds Skin General skin exam: no rashes or lesions noted and elasticity normal Lesions: no lesions Rashes: no rashes Neuro General: oriented to person and patient oriented x3 Course Reevaluation(s) Reevaluation #1: Patient was seen in consultation by Dr. Mcgovern for the piloniidal cyst,pt will see him in the office as outpatient Time: 13:50 Medical Decision Making Medical Decision Making MDM Narrative: Patient presented with abdominal pain will obtain labs, imaging and reassess Differential Diagnosis Differential Diagnoses: The differential diagnosis associated with the presentation includes Admission/Observation Consideration of admission/observation: Escalation of care including admission/observation considered Lab Data [facility] Lab Attestation statement: I reviewed the patient's lab results. 01/04/23 09:42 01/04/23 09:42 Labs: Lab Results 01/04/23 Range/Units 09:42 WBC 5.0 (4.8-10.8) X10*3/uL RBC 5.17 (4.60-5.80) X10*6/uL Hgb 15.0 (14.0-18.0) g/dl Hct 45.6 (42.0-52.0) % MCV 88.2 (80.0-98.0) fL MCH 29.0 (27.0-33.0) pg MCHC 32.9 (31.0-36.0) g/dl RDW 12.6 (11.0-16.0) % Plt Count 209 (160-400) X10*3/uL MPV 9.9 (9.4-12.4) fL Immature Gran % (Auto) 0.2 (0.0-0.4) % Neut % (Auto) 54.5 (45-73) % Lymph % (Auto) 25.1 (20-40) % [place] % (Auto) 9.2 (2-11) % Eos % (Auto) 10.2 H (0-4) % Baso % (Auto) 0.8 (0-2) % Lymph # (Auto) 1.3 (1.2-4.9) X10*3/uL [place] # (Auto) 0.5 (0.1-1.2) X10*3/uL Eos # (Auto) 0.5 H (0.0-0.4) X10*3/uL Baso # (Auto) 0.0 (0.0-0.2) X10*3/uL Abs Immat Gran (auto) 0.01 (0.00-0.03) X10*3/uL Absolute Neuts (auto) 2.7 (2.0-8.3) x10*3/uL Absolute Nucleated RBC 0.000 (0.0-0.012) X10*3/uL Nucleated RBC % (auto) 0.0 (0.0-0.2) /100WBC Sodium 141 (135-145) mmol/L Potassium 4.1 (3.3-5.1) mmol/L Chloride 106 (96-108) mmol/L Carbon Dioxide 28 (22-29) mmol/L Anion Gap 11 L (12-20) BUN 10 (9-16) mg/dL Creatinine 0.92 (0.5-1.4) mg/dL Estim Creat Clear Calc 116.7 Estimated GFR > 60 Random Glucose 99 (60-115) mg/dL Calcium 9.3 (8.4-10.2) mg/dL Total Bilirubin 0.4 (0.0-1.0) mg/dL AST 18 (5-37) U/L ALT 11 (0-40) U/L Alkaline Phosphatase 87 (39-117) U/L Total Protein 7.3 (6.5-8.0) g/dL Albumin 4.2 (3.5-5.0) g/dL Lipase 19 (8-78) U/L Independent Interpretation I performed an independent interpretation of an: CT Scan Radiology Impression Discussion of test interpretation with radiology: I have reviewed the radiologist's reading. Radiologist Impression: VASCULAR: Normal caliber abdominal aorta. PELVIC VISCERA: Unremarkable. OSSEOUS STRUCTURES: No destructive bone lesions. At the right eccentric superior margin of the gluteal cleft there is a complex fluid collection measuring 2.9 x 1.9 x 3.9 cm. There is surrounding infiltration of the subcutaneous tissues extending inferiorly. There is overlying skin thickening. CT/CT abdomen pelvis w IV con IMPRESSION: Complex fluid collection seen at the right eccentric superior margin of the gluteal cleft extending inferiorly measuring 2.9 x 1.9 x 3.9 cm. Associated infiltration of the subcutaneous fat and overlying skin thickening. Cellulitis and abscess should be considered. Possible gastric wall thickening. Consider correlation with direct visualization Dictated By: Lola Lamar MD Signed By: <Electronically signed by Lola Lamar MD in [place]> Medications Administered Discontinued Medications Generic Name Dose Route Start Last Admin Trade Name Freq PRN Reason Stop Dose Admin Al Hydroxide/Mg Hydroxide 30 ml 01/04/23 12:23 01/04/23 12:49 Magnesium Hydrox/Alum Hydrox 30 Ml Oral.Susp PO 01/04/23 12:24 30 ml ONCE ONE Administration Sodium Chloride 1,000 mls @ 999 mls/hr 01/04/23 09:30 01/04/23 11:50 Ns IVCONT 01/04/23 10:30 Infused .Q1H1M AILEEN Infusion Iohexol 100 ml 01/04/23 10:30 01/04/23 10:30 Iohexol 350 Mg/Ml 100 Ml Infus..Btl IV 01/04/23 10:31 85 ml ONCE ONE Administration Ketorolac Tromethamine 15 mg 01/04/23 09:29 01/04/23 09:45 Ketorolac Tromethamine 15 Mg/Ml Vial IVPUSH 01/04/23 09:30 15 mg ONCE ONE Administration Pantoprazole Sodium 40 mg 01/04/23 12:23 01/04/23 12:50 Pantoprazole Sodium 40 Mg/10 Ml Vial IVPUSH 11/06/23 12:24 40 mg ONCE ONE Administration Discharge Plan Discharge Clinical Impression: Abdominal pain, epigastric, Pilonidal cyst Patient Disposition: Home, Self-Care Instructions: Epigastric Pain (ED) Additional Instructions: follow up with PCP return if worse, also follow-up with Dr. Mcgovern for your cyst and follow up with hastroenterologist Prescriptions: New omeprazole 20 mg capsule,delayed release(DR/EC) 20 mg PO DAILY Qty: 30 0RF No Action calcium polycarbophil [FiberCon] 625 mg tablet 625 mg PO DAILY 30 Days Qty: 30 2RF ibuprofen 800 mg tablet 800 mg PO Q8H Referrals: Harjit Heath MD [Physician] - 1 week Maximino Stephens MD [Primary Care Provider] - 2 days Paulo Mcgovern MD [Physician] - 3 days Stand Alone Forms: Work/School Release Interventions: ED Discharge Assessment Last Done: 01/04/23 14:01 Discharge Date/Time: 01/04/23 14:13
[2023-01-04] MEDS: 0.9 % Sodium Chloride 1,000 ML 999 ML IVCONT (09:45)
[2023-01-04] MEDS: Ketorolac Tromethamine 15 MG/ML VIAL IVPUSH (09:45)
[2023-01-04 09:47] LABS: MANUAL DIFF FLAG NO
[2023-01-04 09:49] LABS: Basophils Percent Auto 0.8 % (0-2); Eosinophils Absolute Auto 0.5 X10*3/uL (0.0-0.4); Eosinophils Percent Auto 10.2 % (0-4); Hematocrit 45.6 % (42.0-52.0); Imm Gran Abs Auto 0.01 X10*3/uL (0.00-0.03); Imm Gran Pct Auto 0.2 % (0.0-0.4); Lymphocytes Absolute Auto 1.3 X10*3/uL (1.2-4.9); Lymphocytes Percent Auto 25.1 % (20-40); Mean Corpuscular HGB Conc 32.9 g/dl (31.0-36.0); Mean Corpuscular Volume 88.2 fL (80.0-98.0); Mean Platelet Volume 9.9 fL (9.4-12.4); Monocytes Absolute Auto 0.5 X10*3/uL (0.1-1.2); Monocytes Percent Auto 9.2 % (2-11); Neutrophils Absolute Auto 2.7 x10*3/uL (2.0-8.3); Neutrophils Percent Auto 54.5 % (45-73); Platelet Count 209 X10*3/uL (160-400); Red Blood Count 5.17 X10*6/uL (4.60-5.80); Red Cell Distribution Width 12.6 % (11.0-16.0)
[2023-01-04 10:04] LABS: Alanine Aminotransferase 11 U/L (0-40); Albumin Level 4.2 g/dL (3.5-5.0); Alkaline Phosphatase 87 U/L (39-117); Anion Gap 11 (12-20); Aspartate Amino Transferase 18 U/L (5-37); Bilirubin Total 0.4 mg/dL (0.0-1.0); Blood Urea Nitrogen 10 mg/dL (9-16); Calcium 9.3 mg/dL (8.4-10.2); Carbon Dioxide 28 mmol/L (22-29); Chloride 106 mmol/L (96-108); Creatinine Clr Calc Pharmacy 116.7; Estimated Glomerular Filt Rate > 60; Glucose Random 99 mg/dL (60-115); Lipase 19 U/L (8-78); Potassium 4.1 mmol/L (3.3-5.1); Sodium 141 mmol/L (135-145); Total Protein 7.3 g/dL (6.5-8.0)
[2023-01-04] MEDS: iohexoL 350 MG/ML 100 ML INFUS..BTL IV (10:30)
[2023-01-04 12:00] VITALS: BP 112/72; PULSE 80; RESP 18; O2SAT 100
[2023-01-04] MEDS: Magnesium Hydrox/Alum Hydrox 30 ML ORAL.SUSP PO (12:49)
[2023-01-04] MEDS: Pantoprazole Sodium 40 MG/10 ML VIAL IVPUSH (12:50)
--- NOTE | 2023-01-04 13:23 | P.CONGS_ITS ---
History of Present Illness Consult details Consult date: 01/04/23 Narrative: 32-year-old male referred by the ED because of abdominal as well as an area of pain and swelling on the sacrococcygeal area. He describes having pain around his mid abdomen for 1 or 2 days now. He says that this is constant. Denies any nausea or vomiting. He does have a history of celiac disease. He says that he has had this area of pain and swelling on his sacrococcygeal aspect for many years now. He does not notice any changes with this. He denies any drainage. Denies any redness. Review of Systems 2 Constitutional: Constitutional: Denies chills and Denies fever(s) Cardiovascular: Cardiovascular: Denies chest pain, Denies dyspnea and Denies dyspnea on exertion Respiratory: Respiratory: Denies cough, Denies dyspnea and Denies dyspnea on exertion Gastrointestinal: Gastrointestinal: Denies hematochezia and Denies change in bowel habits Genitourinary: Genitourinary: Denies hematuria and Denies difficulty urinating Musculoskeletal: Musculoskeletal: Denies back pain and Denies limited range of motion Neurologic: Denies focal weakness and Denies convulsions Psychiatric: Psychiatric: Denies depression and Denies mood swings PMFSH Past Medical History Medical History Abdominal pain Asthma Pneumothorax Celiac disease H/O iron deficiency anemia Family History Family History Father HTN (hypertension) High cholesterol Mother Clotting disorder Surgical History Surgical History History of appendectomy Social History Social History (Updated 01/06/23 @ 11:16 by ABRIL Duran) Housing: Apartment Alcohol intake: current Alcohol intake frequency: holidays/special occasions only Alcohol type: beer Patient Tobacco Use Status: Never used Tobacco e-Cigarette/Vaping Use: Never Used Substance Use Type: Marijuana service: No Current occupational status: employed Current occupational exposures/hazards: No Cognitive needs: No Hearing needs: No Vision needs: No Meds Allergies Allergy/AdvReac Type Severity Reaction Status Date / Time egg [EGG] Allergy Severe SWELLING, Verified 07/08/22 10:36 HIVES Home Medications Medication Instructions Recorded Confirmed Last Taken Type ibuprofen 800 mg tablet 800 mg PO Q8H 06/02/22 01/06/23 Unknown History Physical Exam 2 Vital Signs: Vital Signs: Last Vital Signs Temp 98.4 F 01/04/23 09:25 Pulse 69 01/04/23 09:25 Resp 16 01/04/23 09:25 BP 122/83 01/04/23 09:25 Pulse Ox 98 01/04/23 09:25 O2 Del Method Room Air 01/04/23 09:25 BMI result Body Mass Index 20.4 Const: General: comfortable and no acute distress O rientation/consciousness: patient oriented x3 Neck: Neck: Yes no lymphadenopathy Resp: Auscultation: clear to auscultation bilaterally Cardio: Rhythm: regular rhythm GI: Palpation (GI): Soft to palpation, Tenderness to palpation present (GI) (Mild tenderness diffusely) and no guarding Back/Spine/Pelvis: Other: On the sacrococcygeal area is note of a soft mass to the left of the midline, with no fluctuance no redness no cellulitis, no discharge or sinus Neuro: General: patient oriented x3 Results Labs 01/04/23 09:42 01/04/23 09:42 Labs: Abnormal lab results 01/04/23 Range/Units 09:42 Eos % (Auto) 10.2 H (0-4) % Eos # (Auto) 0.5 H (0.0-0.4) X10*3/uL Anion Gap 11 L (12-20) Short CBC 01/04/23 Range/Units 09:42 WBC 5.0 (4.8-10.8) X10*3/uL Hgb 15.0 (14.0-18.0) g/dl Hct 45.6 (42.0-52.0) % Plt Count 209 (160-400) X10*3/uL BMP 01/04/23 09:42 Sodium 141 Potassium 4.1 Chloride 106 Carbon Dioxide 28 BUN 10 Creatinine 0.92 Calcium 9.3 Liver Function 01/04/23 Range/Units 09:42 Total Bilirubin 0.4 (0.0-1.0) mg/dL AST 18 (5-37) U/L ALT 11 (0-40) U/L Alkaline Phosphatase 87 (39-117) U/L Albumin 4.2 (3.5-5.0) g/dL All other labs normal. Assessment and Plan (1) Pilonidal cyst: Status: Acute He has this mass on the sacrococcygeal area described above. This measures about 3 cm in widest dimension. This is not acutely erythematous nor tender. He says that he has had this for years This appears to be a pilonidal cyst. I told him that he should come to the office so we can re-evaluate this and schedule him for excision as needed. His CAT scan shows a complex fluid collection in this area consistent with a cyst. (2) Abdominal pain: Status: Acute I have reviewed his CAT scan. There was a question of gastric wall thickening diffusely. He is inserted and endoscopies I told him that he should this discussed this with the primary care physician on his next visit so that he can be referred to a bottle feeder with regards to this. His abdominal exam is benign at this time. He does have a history of celiac disease as well. I have discussed the above with his family at bedside. Procedures Date of Service Date of Service: 01/07/23
== END 2023-01-04 14:13 | disposition home or self-care (01) ==
PROVIDERS: Emergency Provider Emergency Medicine; PCP Family Medicine
DX: R10.33 Periumbilical pain (principal); K90.0 Celiac disease; R10.13 Epigastric pain; Z79.899 Other long term (current) drug therapy
CPT/HCPCS: 36415; 74177; 80053; 83690; 85025; 96361; 96374; 96375; 99284; C9113; J1885; Q9967

== ENCOUNTER → 2023-01-04 09:56 | Outpatient (BNV) | payer OTHER, SELFPAY | PROVIDERS: Emergency Provider Emergency Medicine; PCP Family Medicine; Visit Provider Surgery | DX: L05.91 Pilonidal cyst without abscess (principal); R10.9 Unspecified abdominal pain | CPT/HCPCS: 99283 ==

== ENCOUNTER 2023-01-06 11:04 | Outpatient (AMB) | payer OTHER, SELFPAY ==
--- NOTE | 2023-01-06 11:11 | A.OFFVIS_ITS ---
Intake Vital Signs 01/06/23 11:17 Height 6 ft 1 in Weight 181 lb BMI 23.9 BP 136/83 Blood Pressure Location Rt brachial Position Sitting Pulse 70 Intake Visit Reasons: Pilonidal Cyst Intake Note: Patient referred for pilonidal cyst on tailbone X4m. C/o pain that gets worse with pressure. Denies oozing, bleeding. Industrial Cleaner Required: No Accompanied by: girlfriend Allergies egg [EGG] Allergy (Severe, Verified 07/08/22 10:36) SWELLING, HIVES Medication List - Last Reconciled 01/06/23 by Paulo Mcgovern MD calcium polycarbophil (FiberCon) 625 mg PO DAILY 30 days ibuprofen 800 mg PO Q8H omeprazole 20 mg PO DAILY HPI Pilonidal Cyst HPI Details 32-year-old male here for a pilonidal cyst. He has noticed this lump on his tailbone for several years. He describes occasional redness and pain. He also says that this seems to have increased in size. I had actually seen him in the ER over the weekend because of this as well. He denies any drainage. He admits to smoking marijuana regularly. [facility] Medical History (Updated 01/05/23 @ 00:01 by Ash Gant) Abdominal pain Asthma Pneumothorax Celiac disease H/O iron deficiency anemia Surgical History History of appendectomy Family History Father HTN (hypertension) High cholesterol Mother Clotting disorder Social History Housing: Apartment Alcohol intake: current Alcohol intake frequency: holidays/special occasions only Alcohol type: beer Patient Tobacco Use Status: Never used Tobacco e-Cigarette/Vaping Use: Never Used Substance Use Type: Marijuana service: No Current occupational status: employed Current occupational exposures/hazards: No Cognitive needs: No Hearing needs: No Vision needs: No Review of Systems Const Denies chills and Denies fever(s) Card Denies chest pain, Denies dyspnea and Denies dyspnea on exertion Resp Denies cough, Denies dyspnea and Denies dyspnea on exertion GI Denies hematochezia and Denies change in bowel habits Denies hematuria and Denies difficulty urinating Musc Denies back pain and Denies limited range of motion Neuro Denies focal weakness and Denies convulsions Psych Denies depression and Denies mood swings Physical Exam Const General: comfortable and no acute distress Orientation/consciousness: patient oriented x3 Neck Neck: Yes no lymphadenopathy Resp Auscultation: clear to auscultation bilaterally Cardio Rhythm: regular rhythm GI Palpation (GI): Soft to palpation, nontender and no guarding Back/Spine/Pelvis Other: mass on the chronic coccygeal area to the right of the midline, about 4 cm in diameter, with midline pits in the gluteal cleft; mass not currently inflamed nor fluctuant Neuro General: patient oriented x3 Assessment & Plan Assessment & Plan (1) Pilonidal cyst: Code(s): L05.91 - Pilonidal cyst without abscess Plan: He has a pilonidal cyst on the sacrococcygeal area. This has been causing him discomfort and he feels that this has been increasing in size. he describes occasional redness and pain.I reviewed with him the technique of excision of the pilonidal cyst which will be done under anesthesia. I reviewed the risks including but not limited to bleeding, infections, poor healing, pain, as well as the benefits and alternatives. He wants to proceed with excision. He also understands what to expect postoperatively. Coding Level of Care Code Est Pt Level 3 (29349) Diagnoses Pilonidal cyst L05.91
[2023-01-06 11:17] VITALS: BP 136/83; PULSE 70; BMI 23.9
== END 2023-01-06 11:25 | disposition home or self-care (01) ==
PROVIDERS: PCP Family Medicine; Visit Provider Surgery
DX: L05.91 Pilonidal cyst without abscess (principal)
CPT/HCPCS: 99213

== ENCOUNTER → 2023-01-06 11:04 | Outpatient (BNVA) | payer OTHER, SELFPAY | PROVIDERS: PCP Family Medicine; Visit Provider Surgery | DX: L05.91 Pilonidal cyst without abscess (principal) | CPT/HCPCS: 99212 ==

== ENCOUNTER 2023-06-14 10:33 | Emergency (ER) | payer OTHER, SELFPAY ==
--- NOTE | ~2023-06-14 | XR_ITS ---
EXAMINATION: XR CHEST CLINICAL INFORMATION: shortness of breath COMPARISON: Chest radiograph 10/14/2021 TECHNIQUE: 2 views of the chest were obtained. FINDINGS: The lungs are well expanded. No focal consolidation, effusion, edema, or pneumothorax. The cardiomediastinal silhouette is within normal limits for technique and unchanged. No acute osseous abnormality. XR/XR chest 2V IMPRESSION: No acute pulmonary disease. No significant interval change compared to 10/14/2021.
[2023-06-14 11:10] VITALS: BP 105/79; PULSE 79; RESP 18; TEMP 36.6; O2SAT 98; BMI 22.6
--- NOTE | 2023-06-14 11:13 | ED.GENADULT ---
HPI - General Adult General Chief complaint: Upper Respiratory Symptoms Stated complaint: Diff breathing/Cough Time Seen by Provider: 06/14/23 12:05 Source: patient and RN notes reviewed Mode of arrival: ambulatory Limitations: no limitations History of Present Illness HPI narrative: This is a 33-year-old male, with a history of asthma, who presents emergency department with complaints of sneezing, dry cough, body aches, headaches x 5 days. Patient reports that he gets intermittent wheezing. He states that he thought his symptoms were attributed to allergies however has been taking allergy meds without any relief. He denies any fevers, chills, chest pain, palpitations, abdominal pain, nausea, vomiting or diarrhea. Denies shortness of breath. He states that he does not have an inhaler at home. No other complaints or concerns this time. MD complaint: cough, congestion Onset (ago): day(s) Radiation: non-radiation Severity: moderate Quality: aching Pain Consistency: constant Relieving factors: none Exacerbating factors: none Associated symptoms: denies other symptoms Treatments prior to arrival: none Related Data Home Medications ?Medication ?Instructions ?Recorded ?Confirmed ibuprofen 800 mg tablet 800 mg PO Q8H 06/02/22 01/27/23 Previous Rx's ?Medication ?Instructions ?Recorded calcium polycarbophil 625 mg 625 mg PO DAILY 30 days #30 tabs 07/08/22 tablet (FiberCon) omeprazole 20 mg capsule,delayed 20 mg PO DAILY #30 caps 01/04/23 release albuterol sulfate 90 mcg/actuation 2 puff inhalation Q4-6H PRN 06/14/23 aerosol inhaler shortness of breath or wheezing #6.7 grams benzonatate 100 mg capsule 100 mg PO TID PRN cough #12 caps 06/14/23 Allergies Allergy/AdvReac Type Severity Reaction Status Date / Time egg [EGG] Allergy Severe SWELLING, Verified 06/14/23 11:12 HIVES Review of Systems Review of Systems: Yes all other systems are reviewed and are negative Constitutional: Constitutional: Reports as per [facility] Past Medical History Medical History Abdominal pain Asthma Pneumothorax Celiac disease H/O iron deficiency anemia Surgical History History of appendectomy Family History Family History Father HTN (hypertension) High cholesterol Mother Clotting disorder Social History Social History (Updated 01/06/23 @ 11:16 by ABRIL Duran) Housing: Apartment Alcohol intake: current Alcohol intake frequency: holidays/special occasions only Alcohol type: beer Patient Tobacco Use Status: Never used Tobacco e-Cigarette/Vaping Use: Never Used Substance Use Type: Marijuana Advance Directives: No Advance Directives Information Provided: Yes service: No Current occupational status: employed Current occupational exposures/hazards: No Cognitive needs: No Hearing needs: No Vision needs: No Physical Exam ED Vital Signs: Vital Signs - 24 hr 06/14/23 11:10 06/14/23 12:35 Temperature 97.9 F Pulse Rate 79 85 Respiratory Rate 18 18 Blood Pressure 105/79 Pulse Oximetry 98 Oxygen Delivery Method Room Air BMI result Body Mass Index 22.6 Const General: cooperative, comfortable and no acute distress Orientation/consciousness: patient oriented x3 Limitations: no limitations HENMT Head: Yes normal to inspection, Yes normocephalic and Yes atraumatic Ears: hearing grossly normal bilaterally General nose exam: Normal external nose present Face and sinus: Yes normal facial exam Mouth: Normal oral and palatal mucosa present, oropharynx normal and moist mucous membranes Throat: Yes posterior oropharynx normal Eyes General: appearance normal, both eyes and all related structures Eyelids: Yes eyelids normal Conjunctivae: conjunctivae normal Sclerae: sclerae normal Pupils: Equal, round and reactive pupils present EOM: EOMs intact bilaterally Neck Neck: Yes normal visual inspection, Yes full ROM and Yes no lymphadenopathy Lymphatic: no lymphadenopathy noted Chest Chest palpation & inspection: normal inspection of the chest Resp Other: Faint expiratory wheeze noted at the left lower and left upper lung martinez. Effort & Inspection: normal respiratory effort and able to speak in complete sentences Cardio Rate: regular rate Rhythm: regular rhythm Heart sounds: S1 normal heart sound present and S2 normal heart sound present GI Inspection: Yes normal to inspection Skin General skin exam: no rashes or lesions noted Trauma: no lacerations or abrasions Wounds: no wounds Neuro General: patient oriented x3 and moves all extremities Cranial nerves: Yes Equal, round and reactive pupils present Extrem General: Yes normal to inspection Right upper extremity: normal to inspection Left upper extremity: normal to inspection Right lower extremity: normal to inspection Left lower extremity: normal to inspection Course Course Course Narrative: RME- 33-year-old male presents for evaluation shortness of breath, cough, congestion that started 4 days ago. Plan for viral swabs, chest x-ray. The patient is well-appearing. Very faint wheeze on exam heard best in the right base Reevaluation(s) Reevaluation #1: Patient feeling better after updraft, vital signs stable, chest x-ray revealing no pneumonia, viral swabs negative. Discussed findings with patient. Symptoms likely due to viral URI, discharged with albuterol inhaler and Tessalon Perles. Given return precautions. Patient understands agrees with plan. Patient stable for discharge Time: 13:22 Medications Administered Discontinued Medications Generic Name Dose Route Start Last Admin Trade Name Freq PRN Reason Stop Dose Admin Albuterol Sulfate 2.5 mg/ 0 mg 06/14/23 12:32 06/14/23 12:35 Albuterol/Ipratropium 3 ml INHALE 06/14/23 12:33 1 dose ONCE ONE Administration Medical Decision Making Medical Decision Making [facility] Narrative: This is a 33-year-old male, with a history of asthma, who presents emergency department for evaluation of cough, congestion, headaches, body aches x5 days. Lungs with faint expiratory wheeze noted in upper and lower left lung martinez. Vital signs stable. He is nontoxic appearing, speaking full sentences under no acute respiratory distress. Physical exam otherwise unremarkable. Differential diagnoses include URI, pneumonia, viral syndrome, COVID, influenza. Less likely pneumothorax, pulmonary embolism. He is PERC negative. Differential Diagnosis Differential Diagnoses: The differential diagnosis associated with the presentation includes See above Admission/Observation Consideration of admission/observation: Escalation of care including admission/observation considered Escalation of care including admission/observation considered however given workup today not warranted at this time. Lab Data [facility] Lab Attestation statement: I reviewed the patient's lab results. Labs: Lab Results 06/14/23 Range/Units 12:31 COVID-19 (TONI) Negative (Negative) COVID-19 Clin Com See Note Influenza Type A (ARON) Negative (Negative) Influenza Type B (ARNO) Negative (Negative) Influenza A & B Note See Note Radiology Impression Discussion of test interpretation with radiology: I have reviewed the radiologist's reading. External Record Review External record reviewed: Inpatient record, Office record, Outpatient record, Prior outpatient labs, Prior outpatient radiology, Primary care record and Outside ED record Discharge Plan Discharge Clinical Impression: Upper respiratory infection Patient Disposition: Home, Self-Care Instructions: Upper Respiratory Infection (ED), Viral Syndrome (ED) Additional Instructions: Your seen in the emergency department due to cough, congestion, body aches and headaches. You tested negative for COVID and flu. Your chest x-ray does not show a pneumonia. Please drink plenty of fluids and get plenty of rest. Use inhaler as needed for shortness of breath. Take Tessalon Perles as needed for cough. If any new or worsening symptoms occur including but not limited to chest pain, shortness of breath, abdominal, nausea, vomiting or diarrhea please return for re-evaluation. Prescriptions: New benzonatate 100 mg capsule 100 mg PO TID PRN (Reason: cough) Qty: 12 0RF albuterol sulfate 90 mcg/actuation HFA aerosol inhaler 2 puff inhalation Q4-6H PRN (Reason: shortness of breath or wheezing) Qty: 6.7 0RF No Action omeprazole 20 mg capsule,delayed release(DR/EC) 20 mg PO DAILY Qty: 30 0RF calcium polycarbophil [FiberCon] 625 mg tablet 625 mg PO DAILY 30 Days Qty: 30 2RF ibuprofen 800 mg tablet 800 mg PO Q8H Stand Alone Forms: Work/School Release Print Language: Macanese
[2023-06-14 12:35] VITALS: PULSE 85; RESP 18; O2SAT 100
[2023-06-14] MEDS: Albuterol Sulfate 2.5 MG, Albuterol/Iprat 2.5/0.5MG 3 ML 3 ML INHALE (12:35)
[2023-06-14 12:57] LABS: IDNOW Serial# 08D9AD1C; IDNOW Serial# 152EDE1D; Influenza A Negative (Negative); Influenza B2 Negative (Negative)
[2023-06-14 12:58] LABS: COVID-19 Test Negative (Negative)
[2023-06-14 13:29] VITALS: BP 127/70; PULSE 70; RESP 18; TEMP 36.4; O2SAT 97
== END 2023-06-14 13:30 | disposition home or self-care (01) ==
PROVIDERS: Physician Assistant; Emergency Provider Emergency Medicine; PCP Family Medicine
DX: J06.9 Acute upper respiratory infection, unspecified (principal); J45.909 Unspecified asthma, uncomplicated
CPT/HCPCS: 71046; 87502; 87635; 94640; 99283; 99284

== ENCOUNTER 2023-10-27 06:40 | Emergency (ER) | payer OTHER, SELFPAY ==
--- NOTE | ~2023-10-27 | XR_ITS ---
EXAMINATION: XR FEMUR, LEFT CLINICAL INFORMATION: Left thigh pain. Rule out fracture COMPARISON: None available. TECHNIQUE: AP and lateral views of the left femur were obtained. FINDINGS: The left hip is adequately aligned. No acute fracture. Alignment at the left knee joint appears maintained. No acute soft tissue abnormality. No abnormal soft tissue calcifications. XR/XR femur LT 2V IMPRESSION: No acute fracture. Electronically signed by: Chucho Ruiz MD 10/27/2023 08:58 AM EDT
--- NOTE | ~2023-10-27 | XR_ITS ---
EXAMINATION: XR PELVIS CLINICAL INFORMATION: Left hip pain rule out fracture COMPARISON: None available. TECHNIQUE: AP view of the pelvis. FINDINGS: No acute fracture. Hip joint spaces are maintained. Alignment is anatomic. Sacroiliac joints and pubic symphysis are normal. No abnormal soft tissue calcifications. XR/XR pelvis 1-2V IMPRESSION: Unremarkable radiograph of the pelvis. Electronically signed by: Chucho Ruiz MD 10/27/2023 08:56 AM EDT
[2023-10-27 06:43] VITALS: BP 111/78; PULSE 69; RESP 18; TEMP 36.9; O2SAT 97; BMI 21.2
--- NOTE | 2023-10-27 07:48 | ED_ITS ---
HPI - Extremity Problem General Chief complaint: Extremity Problem Stated complaint: left upper leg pain Time Seen by Provider: 10/27/23 07:03 Source: patient Mode of arrival: ambulatory Limitations: no limitations History of Present Illness ED Provider: Dr. Edgardo Webb HPI Narrative: 33-year-old male who presents emergency department for evaluation of left thigh pain. Patient states that 2 days ago he developed pain in his left upper thigh which is localized to the medial anterior thigh. Patient states that the pain started prior to playing basketball 2 days prior, he denied any injury while playing basketball and states he was able to play basketball any difficulty he states that last night the pain got worse to the point where he is having difficulty moving. He has not noticed any erythema, increased warmth or breakdown of the skin in the area. He states this is 1st episode of this type of pain. Related Data Home Medications ?Medication ?Instructions ?Recorded ?Confirmed ibuprofen 800 mg tablet 800 mg PO Q8H 06/02/22 01/27/23 Previous Rx's ?Medication ?Instructions ?Recorded calcium polycarbophil 625 mg 625 mg PO DAILY 30 days #30 tabs 07/08/22 tablet (FiberCon) omeprazole 20 mg capsule,delayed 20 mg PO DAILY #30 caps 01/04/23 release albuterol sulfate 90 mcg/actuation 2 puff inhalation Q4-6H PRN 06/14/23 aerosol inhaler shortness of breath or wheezing #6.7 grams benzonatate 100 mg capsule 100 mg PO TID PRN cough #12 caps 06/14/23 Allergies Allergy/AdvReac Type Severity Reaction Status Date / Time egg [EGG] Allergy Severe SWELLING, Verified 10/27/23 06:45 HIVES Review of Systems Review of Systems: Yes all other systems are reviewed and are negative [facility] Past Medical History Medical History Abdominal pain Asthma Pneumothorax Celiac disease H/O iron deficiency anemia Surgical History History of appendectomy Family History Family History Father HTN (hypertension) High cholesterol Mother Clotting disorder Social History Social History (Updated 01/06/23 @ 11:16 by ABRIL Duran) Housing: Apartment Alcohol intake: current Alcohol intake frequency: holidays/special occasions only Alcohol type: beer Patient Tobacco Use Status: Never used Tobacco Smoked in Last 30 Days: No e-Cigarette/Vaping Use: Never Used Substance Use Type: Marijuana Advance Directives: No service: No Current occupational status: employed Current occupational exposures/hazards: No Cognitive needs: No Hearing needs: No Vision needs: No Physical Exam Vital Signs: Vital Signs: Last Vital Signs Temp 97.6 F 10/27/23 12:17 Pulse 82 10/27/23 12:17 Resp 18 10/27/23 12:17 BP 107/57 L 10/27/23 12:17 Pulse Ox 100 10/27/23 12:17 O2 Del Method Room Air 10/27/23 12:17 BMI result Body Mass Index 21.2 Vital signs were normal Exam: General: Awake, alert in no distress Extremities: Patient has no tenderness, warmth or erythema to the medial anterior thigh in the area where he is having the discomfort. Patient has full range of motion passively of his hip and knee. With active range of motion of his hip and by he has significant discomfort. There is no weakness. Neuro: Awake, alert, oriented, normal speech, cranial nerves intact, moves all extremities symmetrically Psych: Pleasant, cooperative Medications Administered Discontinued Medications Generic Name Dose Route Start Last Admin Trade Name Liliana PRN Reason Stop Dose Admin Ibuprofen 400 mg 10/27/23 07:47 10/27/23 07:49 Ibuprofen 400 Mg Tablet PO 10/27/23 07:48 400 mg ONCE STA Administration Medical Decision Making Medical Decision Making [facility] Narrative: 33-year-old male who presents emergency department for evaluation of left thigh pain x2 days, no known injury, increasing pain to the point where he is having difficulty walking. Patient had no systemic symptoms and he denied injection drug use. Differential diagnosis: ?Includes but is not limited to groin sprain, occult hip/femur fracture, infectious process, vascular process Following evaluation was ordered: Left hip and pelvis x-ray, left femur x-ray Patient was initially treated with the following: Ibuprofen 400 mg orally Course: The patient's physical examination was unremarkable and did not reveal any evidence of cellulitis, increased warmth or tenderness with palpation over the thigh. X-rays were obtained and there were no acute fracture seen. Patient did get improvement with oral ibuprofen. At this time I suspect that his symptoms are secondary to musculoskeletal injury. He was advised to take Tylenol and ibuprofen for pain he was also advised to apply ice to the painful area. He was given printed and verbal instructions and discharged home. Admission/Observation Consideration of admission/observation: Escalation of care including admission/observation considered Independent Interpretation I performed an independent interpretation of an: Plain X-Ray Interpretation: My interpretation of the patient's left hip and left femur x-rays is as follows: No acute disease Radiology Impression Radiologist Impression: XR pelvis 1-2V IMPRESSION: Unremarkable radiograph of the pelvis. Dictated By: Chucho Ruiz XR femur LT 2V IMPRESSION: No acute fracture. Dictated By: Chucho Ruiz Discharge Plan Discharge Clinical Impression: Muscle strain of left thigh Qualifiers: Encounter type: initial encounter Qualified Code(s): S76.912A - Strain of unspecified muscles, fascia and tendons at thigh level, left thigh, initial encounter Patient Disposition: Home, Self-Care Instructions: Groin Strain (ED) Additional Instructions: Take ibuprofen 200 mg pills, 2 pills every 6 hours as needed for pain or fever. Take Tylenol (acetaminophen) 500 mg pills, 2 pills every 6 hours as needed for pain or fever. Follow-up with your doctor in 2 days. Please return to the emergency department if your symptoms get worse or if you develop any symptoms that are concerning to you. Please see the work note Prescriptions: No Action omeprazole 20 mg capsule,delayed release(DR/EC) 20 mg PO DAILY Qty: 30 0RF benzonatate 100 mg capsule 100 mg PO TID PRN (Reason: cough) Qty: 12 0RF albuterol sulfate 90 mcg/actuation HFA aerosol inhaler 2 puff inhalation Q4-6H PRN (Reason: shortness of breath or wheezing) Qty: 6.7 0RF calcium polycarbophil [FiberCon] 625 mg tablet 625 mg PO DAILY 30 Days Qty: 30 2RF ibuprofen 800 mg tablet 800 mg PO Q8H Stand Alone Forms: Work/School Release Interventions: ED Discharge Assessment Last Done: 10/27/23 12:17 Discharge Date/Time: 10/27/23 12:17 Print Language: Norwegian
[2023-10-27] MEDS: Ibuprofen 400 MG TABLET PO (07:49)
[2023-10-27 08:42] VITALS: BP 116/69; PULSE 62; RESP 12; TEMP 36.4; O2SAT 97
--- NOTE | 2023-10-27 09:13 | PC.NURSE ---
late charting due to patient care, patient arrives through external triage with cc of left thigh pain, patient denies pain with passive movement however when he attempts to move the leg itself he states it is 10/10. patient states he was playing basket ball initially when the injury happened, CMS is intact, he has bilateral strength in both extremities. provided with crackers and water and medicated per MAR. awaiting Xray results at this time
[2023-10-27 10:25] VITALS: BP 107/57; PULSE 82; RESP 12; TEMP 36.4; O2SAT 98
[2023-10-27 12:17] VITALS: BP 107/57; PULSE 82; RESP 18; TEMP 36.4; O2SAT 100
== END 2023-10-27 12:17 | disposition home or self-care (01) ==
PROVIDERS: Emergency Provider Emergency Medicine Emergency Medical Services; PCP Family Medicine
DX: S76.912A Strain of unspecified muscles, fascia and tendons at thigh level, left thigh, initial encounter (principal); X50.9XXA Other and unspecified overexertion or strenuous movements or postures, initial encounter; Y93.9 Activity, unspecified; Y92.9 Unspecified place or not applicable; Y99.9 Unspecified external cause status
CPT/HCPCS: 72170; 73552; 99283; 99284

== ENCOUNTER 2023-10-28 06:48 | Emergency (ER) | payer OTHER, SELFPAY ==
[2023-10-28 07:35] VITALS: BP 113/78; PULSE 78; RESP 16; TEMP 36.2; O2SAT 98; BMI 24.1
--- NOTE | 2023-10-28 07:43 | ED_ITS ---
HPI - General Adult General Chief complaint: General Medical Stated complaint: L leg/groin pain Time Seen by Provider: 10/28/23 07:42 Source: patient Mode of arrival: ambulatory Limitations: no limitations History of Present Illness ED Provider: Pati Caballero PA-C HPI narrative: Patient is a 33 year old assigned male at with a history of anxiety and a left groin injury presenting to the emergency department today with continued left groin pain and dysuria. Patient states that he was seen here on 10/27/2023 for a left groin strain after playing basketball 2 days prior to that but now he is having pain with urination as well. Patient states that he was concerned to take more ibuprofen to remove the left groin pain when he was also having pain with urination. Patient denies any dizziness, lightheadedness, abdominal pain, nausea, vomiting, fever, chills, blurry vision, double vision, loss of vision, chest pain, difficulty breathing, shortness of breath, back pain, night sweats, increased urinary frequency, increased urinary urgency, blood in his urine or stool, syncope or a near syncopal episode, recent trauma or falls, bowel incontinence, bladder incontinence, or any other complaints at this time. Relieving factors: none Exacerbating factors: none Associated symptoms: denies other symptoms Treatments prior to arrival: none Related Data Home Medications ?Medication ?Instructions ?Recorded ?Confirmed ibuprofen 800 mg tablet 800 mg PO Q8H 06/02/22 01/27/23 Previous Rx's ?Medication ?Instructions ?Recorded calcium polycarbophil 625 mg 625 mg PO DAILY 30 days #30 tabs 07/08/22 tablet (FiberCon) omeprazole 20 mg capsule,delayed 20 mg PO DAILY #30 caps 01/04/23 release albuterol sulfate 90 mcg/actuation 2 puff inhalation Q4-6H PRN 06/14/23 aerosol inhaler shortness of breath or wheezing #6.7 grams benzonatate 100 mg capsule 100 mg PO TID PRN cough #12 caps 06/14/23 cefuroxime axetil 250 mg tablet 250 mg PO BID 7 days #14 tabs 10/28/23 ibuprofen 400 mg tablet 400 mg PO Q6H PRN pain #14 tabs 10/28/23 omeprazole 20 mg capsule,delayed 20 mg PO DAILY #14 caps 10/28/23 release Allergies Allergy/AdvReac Type Severity Reaction Status Date / Time egg [EGG] Allergy Severe SWELLING, Verified 10/28/23 07:36 HIVES Review of Systems Constitutional: Constitutional: Reports no additional constitutional complaints, Denies chills, Denies fever(s) and Denies night sweats Eyes: Eyes: Reports no additional eye complaints, Denies blurry vision, Denies change in vision, Denies diplopia, Denies eye discharge, Denies loss of vision and Denies eye pain ENT: Denies dizziness Cardiovascular: Cardiovascular: Reports no additional cardiovascular complaints, Denies chest pain, Denies lightheadedness, Denies Loss of Consciousness and Denies dyspnea Respiratory: Respiratory: Reports no additional respiratory complaints and De nies dyspnea Gastrointestinal: Gastrointestinal: Reports no additional gastrointestinal complaints, Denies abdominal pain, Denies melena, Denies hematochezia, Denies change in bowel habits and Denies change in stool character Genitourinary: Genitourinary: Reports no additional male genitourinary complaints, Denies hematuria, Denies oliguria, Denies difficulty urinating, Reports dysuria, Denies urinary frequency, Denies urinary hesitancy, Denies urinary incontinence and Denies urinary urgency Comments: left groin pain Musculoskeletal: Musculoskeletal: Reports no additional musculoskeletal complaints, Denies numbness and Denies tingling Neurologic: Denies dizziness, Denies loss of vision, Denies numbness and Denies tingling Psychiatric: Psychiatric: Reports no additional psychiatric complaints Endocrine: Endocrine: Reports no additional endocrine complaints Hematologic/Lymphatic: Hematologic/Lymphatic: Reports no additional hematologic/lymphatic complaints Allergic/Immunologic: Allergic/Immunologic: Reports no additional allergic/immunologic complaints [facility] Past Medical History Attestation statement: The following information was validated with the patient. Source: old records reviewed and nursing notes reviewed Medical History Abdominal pain Asthma Pneumothorax Celiac disease H/O iron deficiency anemia Surgical History History of appendectomy Family History Family History Father HTN (hypertension) High cholesterol Mother Clotting disorder Social History Social History Housing: Apartment Alcohol intake: current Alcohol intake frequency: holidays/special occasions only Alcohol type: beer Patient Tobacco Use Status: Never used Tobacco e-Cigarette/Vaping Use: Never Used Substance Use Type: Marijuana Advance Directives: No Advance Directives Information Provided: Yes Do you have a plan to hurt others: No Plan service: No Current occupational status: employed Current occupational exposures/hazards: No Cognitive needs: No Hearing needs: No Vision needs: No Physical Exam ED Vital Signs: Vital Signs - 24 hr 10/28/23 07:35 10/28/23 09:16 Temperature 97.2 F 97.2 F Pulse Rate 78 78 Respiratory Rate 16 16 Blood Pressure 113/78 113/78 Pulse Oximetry 98 98 Oxygen Delivery Method Room Air Room Air BMI result Body Mass Index 24.1 Const General: cooperative, no acute distress, alert and awake Nutritional Appearance: well nourished Orientation/consciousness: patient oriented x3 Limitations: no limitations HENMT Head: Yes normal to inspection and Yes atraumatic Ears: hearing grossly normal bilaterally and external ears normal General nose exam: Normal external nose present, no nasal discharge noted and no epistaxis Face and sinus: Yes normal facial exam, No abrasion and No laceration Mouth: Normal oral and palatal mucosa present, no drooling and no muffled voice Eyes General: appearance normal, both eyes and all related structures Periorbital: periorbital findings normal Eyelids: Yes eyelids normal Conjunctivae: conjunctivae normal Pupils: Equal, round and reactive pupils present EOM: EOMs intact bilaterally Neck Neck: Yes normal visual inspection, Yes full ROM and Yes no lymphadenopathy Chest Chest palpation & inspection: normal inspection of the chest Resp Effort & Inspection: normal respiratory effort and able to speak in complete sentences GI Inspection: Yes normal to inspection Neuro General: patient oriented x3 and moves all extremities Cranial nerves: Yes Equal, round and reactive pupils present Cognition (Neuro): normal cognition Extrem General: Yes normal to inspection, Yes full ROM and Yes capillary refill normal Psych Appearance: grossly normal Mental Status: mental status grossly normal Affect: normal affect Attitude: cooperative Thought process: Normal thought process present Thought content: Normal thought content present Insight: Good insight present (Psych) Medical Decision Making Medical Decision Making MDM Narrative: Patient is a 33 year old assigned male at with a history of anxiety and recent groin injury presenting to the emergency department today with left groin strain and painful urination. Patient's physical exam was unremarkable. Patient's urine showed a possible UTI, given the patient's symptoms, will treat. I explained my physical exam findings as well as all test results to the patient. I answered all questions asked by the patient. I stressed the importance of the patient taking his medication as directed (either prescribed or as the over the counter packaging recommends). I stressed the importance of the patient following up with his primary care provider. I stressed the importance of the patient returning to the emergency department immediately if his symptoms were to worsen or if he were to develop any dizziness, shortness of breath, difficulty breathing, chest pain, blurry vision, loss of vision, nausea, vomiting, abdominal pain, fever, chills, back pain, or any other complaints. Patient verbalized agreement and understanding with this treatment plan and discharge. Differential Diagnosis Differential Diagnoses: The differential diagnosis associated with the presentation includes Left groin strain UTI Admission/Observation Consideration of admission/observation: Escalation of care including admission/observation considered Patient would have been admitted to the hospital had his work up had any findings where hospital admission was appropriate and his clinical presentation warranted hospital admission. Lab Data [facility] Lab Attestation statement: I reviewed the patient's lab results. My interpretation of these results are in the [facility] Rationale portion of this note. Labs: Lab Results 10/28/23 Range/Units 07:55 Urine Color Yellow Urine Appearance Clear Urine pH 6.0 (5.0-9.0) Ur Specific [place] 1.015 (1.005-1.025) Urine Protein Negative (Neg-Trace) mg/dL Urine Glucose (UA) Negative (Negative) mg/dL Urine Ketones Negative (Negative) mg/dL Urine Blood Negative (Negative) Urine Nitrite Negative (Negative) Ur Leukocyte Esterase Small (1+) H (Negative) Urine RBC 0-2 (0-2) /HPF Urine WBC 11-20 H (0-5) /HPF Ur Squamous Epith Cells 0-2 (0-2) /HPF Urine Bacteria None Seen (None Seen) Hyaline Casts 0-2 (0-2) /LPF Prescription Management I considered prescription management with: Pain Medication (patient prescribed pain medication) and Antibiotic (patient prescribed an antibiotic for possible UTI) Discharge Plan Discharge Clinical Impression: Groin strain, Acute UTI Patient Disposition: Home, Self-Care Instructions: Urinary Tract Infection in Men (DC), Groin Strain (ED) Additional Instructions: Follow up with your primary care provider and an orthopedic provider. Return to the emergency department immediately if your symptoms worsen or if you develop any dizziness, shortness of breath, difficulty breathing, chest pain, blurry vision, loss of vision, nausea, vomiting, abdominal pain, fever, chills, back pain, or any other complaints. Prescriptions: New cefuroxime axetil 250 mg tablet 250 mg PO BID 7 Days Qty: 14 0RF ibuprofen 400 mg tablet 400 mg PO Q6H PRN (Reason: pain) Qty: 14 0RF omeprazole 20 mg capsule,delayed release(DR/EC) 20 mg PO DAILY Qty: 14 0RF No Action omeprazole 20 mg capsule,delayed release(DR/EC) 20 mg PO DAILY Qty: 30 0RF benzonatate 100 mg capsule 100 mg PO TID PRN (Reason: cough) Qty: 12 0RF albuterol sulfate 90 mcg/actuation HFA aerosol inhaler 2 puff inhalation Q4-6H PRN (Reason: shortness of breath or wheezing) Qty: 6.7 0RF calcium polycarbophil [FiberCon] 625 mg tablet 625 mg PO DAILY 30 Days Qty: 30 2RF ibuprofen 800 mg tablet 800 mg PO Q8H Referrals: [facility] [Provider Group] (Call to establish and follow up with the orthopedic team for your groin injury. ) Maximino Stephens MD [Primary Care Provider] - Stand Alone Forms: Work/School Release Interventions: ED Discharge Assessment Last Done: 10/28/23 09:16 Discharge Date/Time: 10/28/23 09:17 Print Language: Liberian
[2023-10-28 08:04] LABS: Appearance Urine Clear; Color Urine Yellow; Glucose Urine UA Negative (Negative); Leukocyte Esterase Urine Small (1+) (Negative); Nitrite Urine Negative (Negative); Specific Gravity - Urine 1.015 (1.005-1.025); UMIC TRIGGER UACC YES; Urine Blood Negative (Negative); Urine Ketones Negative (Negative); Urine Protein Negative (Neg-Trace)
[2023-10-28 08:07] LABS: Bacteria Urine None Seen (None Seen); Hyaline Casts Urine 0-2 /LPF (0-2); RBC Urine 0-2 /HPF (0-2); Squamous Epithelial Cell Urine 0-2 /HPF (0-2); UACC Culture Trigger YES
[2023-10-28 09:16] VITALS: BP 113/78; PULSE 78; RESP 16; TEMP 36.2; O2SAT 98
== END 2023-10-28 09:17 | disposition home or self-care (01) ==
PROVIDERS: Physician Assistant Medical; Emergency Provider Emergency Medicine; PCP Family Medicine
DX: N39.0 Urinary tract infection, site not specified (principal); R10.32 Left lower quadrant pain; M79.605 Pain in left leg
CPT/HCPCS: 81001; 81003; 87086; 99282; 99283

== ENCOUNTER 2024-01-16 10:01 | Emergency (ER) | payer SELFPAY ==
[2024-01-16 10:05] VITALS: BP 110/68; PULSE 73; RESP 18; TEMP 36.7; O2SAT 98; BMI 24.9
--- NOTE | 2024-01-16 10:34 | ED_ITS ---
HPI - General Adult General Chief complaint: Skin/Abscess/Foreign Body Stated complaint: Cyst Time Seen by Provider: 01/16/24 10:34 Source: patient Mode of arrival: ambulatory Limitations: no limitations History of Present Illness ED Provider: Trista COLEMAN narrative: Patient is a 34-year-old male presenting to the emergency department with complaint of pain and swelling at the top of his gluteal cleft with spontaneous drainage which began yesterday. Denies recent fever, chills, body aches. States that he accidentally scratched the area and it began to drain purulent fluid. Has been allowing warm water to run over the area in the shower. Denies any history of MRSA. MD complaint: abscess Onset (ago): day(s) Location: back Severity: mild Related Data Home Medications ?Medication ?Instructions ?Recorded ?Confirmed ibuprofen 800 mg tablet 800 mg PO Q8H 06/02/22 01/27/23 Previous Rx's ?Medication ?Instructions ?Recorded calcium polycarbophil 625 mg 625 mg PO DAILY 30 days #30 tabs 07/08/22 tablet (FiberCon) omeprazole 20 mg capsule,delayed 20 mg PO DAILY #30 caps 01/04/23 release albuterol sulfate 90 mcg/actuation 2 puff inhalation Q4-6H PRN 06/14/23 aerosol inhaler shortness of breath or wheezing #6.7 grams benzonatate 100 mg capsule 100 mg PO TID PRN cough #12 caps 06/14/23 cefuroxime axetil 250 mg tablet 250 mg PO BID 7 days #14 tabs 10/28/23 ibuprofen 400 mg tablet 400 mg PO Q6H PRN pain #14 tabs 10/28/23 omeprazole 20 mg capsule,delayed 20 mg PO DAILY #14 caps 10/28/23 release cephalexin 500 mg capsule 500 mg PO QID #14 caps 01/16/24 Allergies Allergy/AdvReac Type Severity Reaction Status Date / Time egg [EGG] Allergy Severe SWELLING, Verified 01/16/24 10:08 BRISA Review of Systems 2 Review of Systems: As per HPI Yes all other systems are reviewed and are negative Constitutional: Constitutional: Reports as per HPI PMFSH Past Medical History Medical History Abdominal pain Asthma Pneumothorax Celiac disease H/O iron deficiency anemia Surgical History History of appendectomy Family History Family History Father HTN (hypertension) High cholesterol Mother Clotting disorder Social History Social History Housing: Apartment Alcohol intake: current Alcohol intake frequency: holidays/special occasions only Alcohol type: beer Patient Tobacco Use Status: Never used Tobacco e-Cigarette/Vaping Use: Never Used Substance Use Type: Marijuana Do you have a plan to hurt others: No Plan service: No Current occupational status: employed Current occupational exposures/hazards: No Cognitive needs: No Hearing needs: No Vision needs: No Physical Exam ED Vital Signs: Vital Signs - 24 hr 01/16/24 10:05 Temperature 98.0 F Pulse Rate 73 Respiratory Rate 18 Blood Pressure 110/68 Pulse Oximetry 98 Oxygen Delivery Method Room Air BMI result Body Mass Index 24.9 Vital signs have been reviewed and appear to be correct. Blood pressure normal. Heart rate normal. Respiratory rate normal. Temperature normal. Oxygen saturation normal. Const General: cooperative, healthy appearing and no acute distress Orientation/consciousness: oriented to person, oriented to place, oriented to time and patient oriented x3 Limitations: no limitations HENMT Head: Yes normocephalic and Yes atraumatic Ears: external ears normal General nose exam: Normal external nose present Face and sinus: Yes face symmetric Mouth: oropharynx normal and moist mucous membranes Throat: Yes uvula midline Eyes Pupils: Equal, round and reactive pupils present Neck Neck: Yes normal visual inspection and Yes supple Resp Effort & Inspection: normal respiratory effort and able to speak in complete sentences Auscultation: clear to auscultation bilaterally Cardio Rate: regular rate Rhythm: regular rhythm Heart sounds: S1 normal heart sound present and S2 normal heart sound present GI Palpation (GI): Soft to palpation and nontender Auscultation: normoactive bowel sounds General: Yes no CVA tenderness Back/Spine/Pelvis Back: no CVA tenderness Skin General skin exam: elasticity normal and turgor normal Full body images: 2 1. 2cm x 4cm area of erythema and induration to right of gluteal cleft with 3mm opening superior draining purulent discharge, no fluctuance Neuro General: oriented to person, oriented to place, oriented to time, patient oriented x3, moves all extremities, no focal motor deficits and CN's II-XI intact bilaterally Cranial nerves: Yes Equal, round and reactive pupils present Cognition (Neuro): normal cognition Extrem General: Yes full ROM, Yes no pedal edema and Yes no calf tenderness Psych Mental Status: mental status grossly normal Affect: normal affect Thought process: Normal thought process present Medical Decision Making Medical Decision Making [facility] Narrative: Patient is a 34-year-old male presenting to the emergency department with complaint of pain and swelling at the top of his gluteal cleft with spontaneous drainage which began yesterday. On exam patient is awake, A+Ox3, VS WNL, afebrile, normal neurological exam without focal deficits, physical exam findings as above. Given reported symptoms and physical exam findings, initial differential includes pilonidal cyst with abscess, cellulitis. Do not suspect sepsis. Given that patient denies history of MRSA, will treat with keflex. Advised warm compresses to area. Will refer to surgery at patient request. Return precautions discussed at bedside. Patient verbalized understanding of and agreement with plan. Differential Diagnosis Differential Diagnoses: The differential diagnosis associated with the presentation includes As per MDM. External Record Review External record reviewed: Inpatient record, Office record and Outpatient record Prescription Management I considered prescription management with: Antibiotic Discharge Plan Discharge Clinical Impression: Pilonidal cyst with abscess Patient Disposition: Home, Self-Care Instructions: Pilonidal Cyst (ED), Abscess (ED), Sitz Bath (DC), Abscess Follow-up (ED), Pilonidal Cyst Excision (DC) Additional Instructions: You were evaluated in the ER for an abscess. Please keep the area surrounding the abscess clean and dry. You were given a prescription for antibiotics, please take the antibiotics as directed for the full course of the medication. You should perform a skin check of the area daily. If the abscess progresses you may have to have the abscess incised and drained. Follow up with surgery to have the cyst removed. You can use Tylenol or ibuprofen per package directions as needed for pain. If necessary, you can alternate these medications so that you take one medication every 3 hours. For instance, at noon take ibuprofen, then at 3:00 p.m. take Tylenol, then at 6:00 p.m. take ibuprofen. Please schedule an appointment with your primary care physician as soon as possible for follow-up. Return to the emergency department if you experience fevers greater than 100.4? F, increased in area of redness or swelling, increasing amount of discharge from the area, increased tenderness around the area, or any other concerning symptoms. Prescriptions: New cephalexin 500 mg capsule 500 mg PO QID Qty: 14 0RF No Action omeprazole 20 mg capsule,delayed release(DR/EC) 20 mg PO DAILY Qty: 30 0RF benzonatate 100 mg capsule 100 mg PO TID PRN (Reason: cough) Qty: 12 0RF albuterol sulfate 90 mcg/actuation HFA aerosol inhaler 2 puff inhalation Q4-6H PRN (Reason: shortness of breath or wheezing) Qty: 6.7 0RF cefuroxime axetil 250 mg tablet 250 mg PO BID 7 Days Qty: 14 0RF ibuprofen 400 mg tablet 400 mg PO Q6H PRN (Reason: pain) Qty: 14 0RF omeprazole 20 mg capsule,delayed release(DR/EC) 20 mg PO DAILY Qty: 14 0RF calcium polycarbophil [FiberCon] 625 mg tablet 625 mg PO DAILY 30 Days Qty: 30 2RF ibuprofen 800 mg tablet 800 mg PO Q8H Referrals: Paulo Mcgovern MD [Physician] - Stand Alone Forms: Work/School Release Print Language: Czech
[2024-01-16 11:23] VITALS: BP 110/68; PULSE 73; RESP 18; TEMP 36.7; O2SAT 98
== END 2024-01-16 11:24 | disposition home or self-care (01) ==
PROVIDERS: Emergency Provider Emergency Medicine; PCP Family Medicine
DX: L05.01 Pilonidal cyst with abscess (principal)
CPT/HCPCS: 10080; 99282; 99284

== ENCOUNTER 2024-02-27 16:46 | Emergency (ER) | payer OTHER, SELFPAY ==
[2024-02-27 17:07] VITALS: BP 123/87; PULSE 86; RESP 20; TEMP 36.8; O2SAT 98; BMI 24.6
--- NOTE | 2024-02-27 17:10 | ED.SKABFB ---
HPI - Skin/Abscess/Foreign Bdy General Chief complaint: Skin/Abscess/Foreign Body Stated complaint: ? cyst next to R eyebrow Time Seen by Provider: 02/27/24 17:09 Source: patient Mode of arrival: ambulatory Limitations: no limitations History of Present Illness ED Provider: BREANA CULVER PA-C HPI narrative: 34 yo male here for eval of cyst above right eyebrow x2-3 days. admits to assoc headache which began today secondary to pain. denies drainage, vision changes, fever, chills. hx of pilonidal. admits to taking an old prescription of antibiotics w/o improvement. he cannot recall the name of the abx. no trauma/ injury. no hx of IVDU. Related Data Home Medications ?Medication ?Instructions ?Recorded ?Confirmed ibuprofen 800 mg tablet 800 mg PO Q8H 06/02/22 01/27/23 Previous Rx's ?Medication ?Instructions ?Recorded calcium polycarbophil 625 mg 625 mg PO DAILY 30 days #30 tabs 07/08/22 tablet (FiberCon) omeprazole 20 mg capsule,delayed 20 mg PO DAILY #30 caps 01/04/23 release albuterol sulfate 90 mcg/actuation 2 puff inhalation Q4-6H PRN 06/14/23 aerosol inhaler shortness of breath or wheezing #6.7 grams benzonatate 100 mg capsule 100 mg PO TID PRN cough #12 caps 06/14/23 cefuroxime axetil 250 mg tablet 250 mg PO BID 7 days #14 tabs 10/28/23 ibuprofen 400 mg tablet 400 mg PO Q6H PRN pain #14 tabs 10/28/23 omeprazole 20 mg capsule,delayed 20 mg PO DAILY #14 caps 10/28/23 release cephalexin 500 mg capsule 500 mg PO QID #14 caps 01/16/24 doxycycline monohydrate 100 mg 100 mg PO BID 7 days #14 caps 02/27/24 capsule Allergies Allergy/AdvReac Type Severity Reaction Status Date / Time egg [EGG] Allergy Severe SWELLING, Verified 02/27/24 17:09 HIVES Review of Systems Review of Systems: Yes all other systems are reviewed and are negative PMFSH Past Medical History Attestation statement: The following information was validated with the patient. Source: old records reviewed and nursing notes reviewed Medical History Abdominal pain Asthma Pneumothorax Celiac disease H/O iron deficiency anemia Surgical History History of appendectomy Family History Family History Father HTN (hypertension) High cholesterol Mother Clotting disorder Social History Social History Housing: Apartment Alcohol intake: current Alcohol intake frequency: holidays/special occasions only Alcohol type: beer Patient Tobacco Use Status: Never used Tobacco e-Cigarette/Vaping Use: Never Used Substance Use Type: Marijuana Advance Directives: No Advance Directives Information Provided: No Do you have a plan to hurt others: No Plan service: No Current occupational status: employed Current occupational exposures/hazards: No Cognitive needs: No Hearing needs: No Vision needs: No Physical Exam Vital Signs: Vital Signs: Last Vital Signs Temp 97.9 F 02/27/24 21:17 Pulse 63 02/27/24 21:17 Resp 16 02/27/24 21:17 BP 118/77 02/27/24 21:17 Pulse Ox 100 02/27/24 21:17 O2 Del Method Room Air 02/27/24 21:17 BMI result Body Mass Index 24.6 vital signs stable, afebrile Const: General: cooperative, healthy appearing, comfortable and no acute distress Orientation/consciousness: patient oriented x3 Limitations: no limitations HEENT: Head: Yes normal to inspection, Yes No palpable skull fracture present, Yes normocephalic and Yes atraumatic Ears: hearing grossly normal bilaterally Face images: 1. 2cm x 1.5cm area of induration/ erythema w/ central fluctuance and pointing. no drainage. ttp. no crepitus. no streaking. Mouth: Normal oral and palatal mucosa present Eyes: General: appearance normal, both eyes and all related structures Periorbital: periorbital findings normal Eyelids: Yes eyelids normal Pupils: Equal, round and reactive pupils present EOM: EOMs intact bilaterally Neck: Neck: Yes no meningeal signs Resp: Effort & Inspection: normal respiratory effort and able to speak in complete sentences Auscultation: clear to auscultation bilaterally Cardio: Rate: regular rate Rhythm: regular rhythm Skin: Other: see above Neuro: General: patient oriented x3, gait normal, no meningeal signs and no focal motor deficits Cranial nerves: Yes Equal, round and reactive pupils present Course Course Course Narrative: This is a Rapid Medical Examination (RME) performed by Noah Culver PA-C in triage. Full HPI, ROS, assessment and treatment plan per primary provider in the Main ED. 34 yo male here for eval of abscess to right eyebrow x days. feels like it needs to pop however no drainage. no vision changes. now has headache. has been taking left over abx from a different abscess. Plan: labs, I&D Reevaluation(s) Reevaluation #1: CBC without leukocytosis or left shift. No anemia, h&h stable. Chemistry without acute electrolyte abnormality requiring intervention. No sushma. Liver function wnl. No indication for imaging as cyst vs abscess appears superficial. No neuro symptoms. > attempted I&D via both needle aspiration then w/ scalpel (see procedure note). at first the area appeared to be abscessed however it quickly began draining a cottage-cheese like substance consistent w/ sebaceous cyst. no obvious purulent drainage. no packing placed. gram stain and culture sent to lab. given overlying cellulitis, will discharge patient w/doxy for coverage. first dose provided in ED. treated pain w/ toradol in ED with good effect. Patient has remained stable throughout ED visit today. Discussed worrisome signs and symptoms and when to return to the ED. All questions answered at this time. Patient is agreeable with disposition and stable for discharge. Medications Administered Discontinued Medications Generic Name Dose Route Start Last Admin Trade Name Liliana PRN Reason Stop Dose Admin Doxycycline Monohydrate 100 mg 02/27/24 20:57 02/27/24 21:05 Doxycycline Monohydrate 100 Mg Capsule PO 02/27/24 20:58 100 mg ONCE ONE Administration Ketorolac Tromethamine 30 mg 02/27/24 20:57 02/27/24 21:05 Ketorolac Tromethamine 30 Mg/Ml Vial IM 02/27/24 20:58 30 mg ONCE ONE Administration Medical Decision Making Medical Decision Making MDM Narrative: 34 yo male here for eval of cyst above right eyebrow x2-3 days. vital signs stable, afebrile. he is nontoxic appearing and in NAD. exam showing 2cm x 1.5cm area of induration/ erythema w/ central fluctuance and pointing noted to lateral aspect of right eyebrow. no drainage. ttp. no crepitus. no streaking. Differential diagnosis includes: sebaceous cyst, abscess, lipoma, cellulitis, hematoma. Unlikely osteomyelitis, encephalitis Plan: basic labs, I&D Differential Diagnosis Differential Diagnoses: The differential diagnosis associated with the presentation includes as above. Admission/Observation not indicated. Lab Data MDM Lab Attestation statement: I reviewed the patient's lab results. as above. 02/27/24 17:53 02/27/24 17:53 Labs: Lab Results 02/27/24 Range/Units 17:53 WBC 5.3 (4.8-10.8) X10*3/uL RBC 5.18 (4.60-5.80) X10*6/uL Hgb 15.4 (14.0-18.0) g/dl Hct 45.1 (42.0-52.0) % MCV 87.1 (80.0-98.0) fL MCH 29.7 (27.0-33.0) pg MCHC 34.1 (31.0-36.0) g/dl RDW 12.2 (11.0-16.0) % Plt Count 238 (160-400) X10*3/uL MPV 9.6 (9.4-12.4) fL Immature Gran % (Auto) 0.2 (0.0-0.4) % Neut % (Auto) 59.2 (45-73) % Lymph % (Auto) 25.9 (20-40) % [place] % (Auto) 11.1 H (2-11) % Eos % (Auto) 3.0 (0-4) % Baso % (Auto) 0.6 (0-2) % Lymph # (Auto) 1.4 (1.2-4.9) X10*3/uL [place] # (Auto) 0.6 (0.1-1.2) X10*3/uL Eos # (Auto) 0.2 (0.0-0.4) X10*3/uL Baso # (Auto) 0.0 (0.0-0.2) X10*3/uL Abs Immat Gran (auto) 0.01 (0.00-0.03) X10*3/uL Absolute Neuts (auto) 3.2 (2.0-8.3) x10*3/uL Absolute Nucleated RBC 0.000 (0.0-0.012) X10*3/uL Nucleated RBC % (auto) 0.0 (0.0-0.2) /100WBC Sodium 139 (135-145) mmol/L Potassium 4.1 (3.3-5.1) mmol/L Chloride 109 H (96-108) mmol/L Carbon Dioxide 24 (22-29) mmol/L Anion Gap 10 L (12-20) BUN 9 (9-16) mg/dL Creatinine 0.85 (0.5-1.4) mg/dL Estim Creat Clear Calc 141.0 Estimated GFR > 60 Random Glucose 90 (60-115) mg/dL Calcium 9.4 (8.4-10.2) mg/dL Total Bilirubin 0.4 (0.0-1.0) mg/dL AST 23 (5-37) U/L ALT 20 (0-40) U/L Alkaline Phosphatase 86 (39-117) U/L Total Protein 7.6 (6.5-8.0) g/dL Albumin 4.3 (3.5-5.0) g/dL External Record Review External record reviewed: Inpatient record Prescription Management I considered prescription management with: Antibiotic (doxycycline) Social Determinants Patient?s care significantly limited by Social Determinants of Health including: Other Social Determinant of Health Procedures Abscess I/D Site: face Side (if applicable): right Local Anesthetic: lidocaine 1% Amount of anesthesia used (mL): 5 Technique: needle aspiration and incised with blade Amount of fluid expressed (mL): 7 Sent for culture/gram staining?: Yes Irrigation: Yes Packing used?: none Critical Care Time Critical Care Time Critical Care Time: No Discharge Plan Discharge Clinical Impression: Sebaceous cyst Patient Disposition: Home, Self-Care Instructions: Cyst (ED) Additional Instructions: You were evaluated in the ED today for a cyst to your right eyebrow. The area was drained. I have applied silver nitrate to the area to help with the bleeding. Please keep the area surrounding the abscess clean and dry for at least 24 hours, then you can wash the area and pat to dry. You will be given a prescription for antibiotics (doxycycline). Please take the antibiotics as directed for the full course of the medication. If the abscess progresses you may have to have the abscess incised and drained. I recommend you take 600mg ibuprofen every 6 hours or Tylenol 650mg every 6 hours as needed for pain. If needed, you can alternate these medications so that you take one medication every 3 hours. For example, at noon take ibuprofen, then at 3pm take Tylenol, then at 6pm take ibuprofen. Please schedule an appointment with your primary care provider as soon as possible for follow up. You have also been provided with a referral to a general surgeon. You may call them to establish care. They will not call you. Return to the Emergency Department if you experience fevers greater than 100.4F, increase in area of redness or swelling, increasing amount of discharge from the area, increased tenderness around the area, or any other concerning symptoms. Prescriptions: New doxycycline monohydrate 100 mg capsule 100 mg PO BID 7 Days Qty: 14 0RF No Action omeprazole 20 mg capsule,delayed release(DR/EC) 20 mg PO DAILY Qty: 30 0RF benzonatate 100 mg capsule 100 mg PO TID PRN (Reason: cough) Qty: 12 0RF albuterol sulfate 90 mcg/actuation HFA aerosol inhaler 2 puff inhalation Q4-6H PRN (Reason: shortness of breath or wheezing) Qty: 6.7 0RF cefuroxime axetil 250 mg tablet 250 mg PO BID 7 Days Qty: 14 0RF ibuprofen 400 mg tablet 400 mg PO Q6H PRN (Reason: pain) Qty: 14 0RF omeprazole 20 mg capsule,delayed release(DR/EC) 20 mg PO DAILY Qty: 14 0RF cephalexin 500 mg capsule 500 mg PO QID Qty: 14 0RF calcium polycarbophil [FiberCon] 625 mg tablet 625 mg PO DAILY 30 Days Qty: 30 2RF ibuprofen 800 mg tablet 800 mg PO Q8H Referrals: [facility] [Provider Group] Maximino Stephens MD [Primary Care Provider] - Stand Alone Forms: Work/School Release Interventions: ED Discharge Assessment Last Done: 02/27/24 21:17 Discharge Date/Time: 02/27/24 21:18 Print Language: [place]
[2024-02-27 18:00] LABS: MANUAL DIFF FLAG NO
[2024-02-27 18:03] LABS: Basophils Percent Auto 0.6 % (0-2); Eosinophils Absolute Auto 0.2 X10*3/uL (0.0-0.4); Hematocrit 45.1 % (42.0-52.0); Hemoglobin 15.4 g/dl (14.0-18.0); Imm Gran Abs Auto 0.01 X10*3/uL (0.00-0.03); Imm Gran Pct Auto 0.2 % (0.0-0.4); Lymphocytes Absolute Auto 1.4 X10*3/uL (1.2-4.9); Lymphocytes Percent Auto 25.9 % (20-40); Mean Corpuscular HGB Conc 34.1 g/dl (31.0-36.0); Mean Corpuscular Hemoglobin 29.7 pg (27.0-33.0); Mean Corpuscular Volume 87.1 fL (80.0-98.0); Mean Platelet Volume 9.6 fL (9.4-12.4); Monocytes Absolute Auto 0.6 X10*3/uL (0.1-1.2); Monocytes Percent Auto 11.1 % (2-11); Neutrophils Absolute Auto 3.2 x10*3/uL (2.0-8.3); Neutrophils Percent Auto 59.2 % (45-73); Platelet Count 238 X10*3/uL (160-400); Red Blood Count 5.18 X10*6/uL (4.60-5.80); Red Cell Distribution Width 12.2 % (11.0-16.0); White Blood Count 5.3 X10*3/uL (4.8-10.8)
[2024-02-27 18:18] LABS: Alanine Aminotransferase 20 U/L (0-40); Albumin Level 4.3 g/dL (3.5-5.0); Alkaline Phosphatase 86 U/L (39-117); Anion Gap 10 (12-20); Aspartate Amino Transferase 23 U/L (5-37); Bilirubin Total 0.4 mg/dL (0.0-1.0); Blood Urea Nitrogen 9 mg/dL (9-16); Calcium 9.4 mg/dL (8.4-10.2); Carbon Dioxide 24 mmol/L (22-29); Chloride 109 mmol/L (96-108); Estimated Glomerular Filt Rate > 60; Glucose Random 90 mg/dL (60-115); Potassium 4.1 mmol/L (3.3-5.1); Sodium 139 mmol/L (135-145); Total Protein 7.6 g/dL (6.5-8.0)
[2024-02-27 20:02] VITALS: BP 118/77; PULSE 63; RESP 16; TEMP 36.6; O2SAT 100
[2024-02-27] MEDS: Doxycycline Monohydrate 100 MG CAPSULE PO (21:05)
[2024-02-27] MEDS: Ketorolac Tromethamine 30 MG/ML VIAL IM (21:05)
[2024-02-27 21:17] VITALS: BP 118/77; PULSE 63; RESP 16; TEMP 36.6; O2SAT 100
== END 2024-02-27 21:18 | disposition home or self-care (01) ==
PROVIDERS: Physician Assistant Medical; Emergency Provider Internal Medicine; PCP Family Medicine
DX: L72.3 Sebaceous cyst (principal); Z79.899 Other long term (current) drug therapy
CPT/HCPCS: 10060; 36415; 80053; 85025; 87070; 87205; 96372; 99283; 99284; J1885

== ENCOUNTER 2024-12-20 12:03 | Emergency (ER) | payer OTHER, SELFPAY ==
[2024-12-20 12:18] VITALS: BP 125/71; PULSE 94; RESP 14; TEMP 36.7; O2SAT 98; BMI 23.6
--- NOTE | 2024-12-20 12:18 | ED_ITS ---
HPI - Skin/Abscess/Foreign Bdy General Chief complaint: Skin/Abscess/Foreign Body Stated complaint: cyst lower back Time Seen by Provider: 12/20/24 18:48 Source: patient, RN notes reviewed and old records reviewed Mode of arrival: ambulatory Limitations: no limitations History of Present Illness ED Provider: Alex HPI narrative: 34-year-old male presents for evaluation an abscess just above his buttocks. He reports he has been there for over a week. It has been draining but not getting smaller. His pain is 6/10 pain Denies any fevers or chills pain He has had this in the past but is not require drainage Related Data Home Medications ?Medication ?Instructions ?Recorded ?Confirmed ibuprofen 800 mg tablet 800 mg PO Q8H 06/02/2201/27 Previous Rx's ?Medication ?Instructions ?Recorded calcium polycarbophil 625 mg 625 mg PO DAILY 30 days # 30 tabs 07/08/22 tablet (FiberCon) omeprazole 20 mg capsule,delayed 20 mg PO DAILY #30 ca ps 01/04/23 release albuterol sulfate 90 mcg/actuation 2 puff inhalation Q 4-6H PRN 06/14/23 aerosol inhaler shortness of breath or wheez ing #6.7 grams benzonatate 100 mg capsule 100 mg PO TID PRN cough #12 caps 06/14/23 cefuroxime axetil 250 mg tablet 250 mg PO BID 7 days # 14 tabs 10/28/23 ibuprofen 400 mg tablet 400 mg PO Q6H PRN pain #14 t abs 10/28/23 omeprazole 20 mg capsule,delayed 20 mg PO DAILY #14 ca ps 10/28/23 release cephalexin 500 mg capsule 500 mg PO QID #14 caps 01/15 doxycycline monohydrate 100 mg 100 mg PO BID 7 days #1 4 caps 02/27/24 capsule cephalexin 500 mg tablet 500 mg PO QID #28 tabs 12/20 doxycycline hyclate 100 mg tablet 100 mg PO BID #14 ta bs 12/20/24 Allergies Allergy/AdvReac Type Severity Reaction Status Date / Time egg (EGG) Allergy Severe SWELLING, Verified 12/20/24 12:20 HIVES Review of Systems Constitutional: Constitutional: Denies body ache(s), Denies chills, Denies fever(s) and Denies headache(s) Eyes: Eyes: Denies blurry vision ENT: Denies vertigo, Denies dizziness and Denies headache(s) Cardiovascular: Cardiovascular: Denies chest pain Respiratory: Respiratory: Denies cough Integumentary/Breasts: Skin/Breast: Reports erythema, Reports skin pain, Reports skin swelling and Reports wounds Neurologic: Denies vertigo, Denies dizziness and Denies headache(s) Psychiatric: Psychiatric: Denies anxiety PMFSH Past Medical History Medical History Abdominal pain Asthma Pneumothorax Celiac disease H/O iron deficiency anemia Surgical History History of appendectomy Family History Family History Father HTN (hypertension) High cholesterol Mother Clotting disorder Social History Social History Housing: Apartment Alcohol intake: current Alcohol intake frequency: holidays/special occasions only Alcohol type: beer Patient Tobacco Use Status: Never used Tobacco e-Cigarette/Vaping Use: Never Used Substance Use Type: Marijuana Advance Directives: No Advance Directives Information Provided: Yes service: No Current occupational status: employed Current occupational exposures/hazards: No Cognitive needs: No Hearing needs: No Vision needs: No Physical Exam Vital Signs: Vital Signs: Last Vital Signs Temp 98.1 F 12/20/24 12:18 Pulse 94 12/20/24 12:18 Resp 14 12/20/24 12:18 BP 125/71 12/20/24 12:18 Pulse Ox 98 12/20/24 12:18 O2 Del Method Room Air 12/20/24 12:18 BMI result Body Mass Index 23.6 Const: General: healthy appearing, comfortable, no acute distress, alert and awake Nutritional Appearance: well nourished Orientation/consciousness: patient oriented x3 HEENT: Head: Yes normocephalic and Yes atraumatic Throat: Yes posterior oropharynx normal Eyes: Eyelids: Yes eyelids normal Conjunctivae: conjunctivae normal Sclerae: sclerae normal Corneas: corneas normal Pupils: Equal, round and reactive pupils present EOM: EOMs intact bilaterally Neck: Neck: Yes full ROM Resp: Effort & Inspection: normal respiratory effort, able to speak in complete sentences and not labored Skin: Other: patient has a large area of erythema with induration and purulent drainage just above the gluteal cleft General skin exam: elasticity normal Neuro: General: patient oriented x3 Cranial nerves: Yes Equal, round and reactive pupils present and Yes Bilaterally intact EOM present Cognition (Neuro): normal cognition Course Course Course Narrative: This is a Rapid Medical Examination (RME) performed by Noah Culver PA-C in triage. Full HPI, ROS, assessment and treatment plan per primary provider in the Main ED. Hx: 34 yo M here for eval of cyst to lower back, right above buttocks. reports the area opened and has been draining, increased pain. hx of similar. advised to f/u with derm, has not. Plan: further eval in back ?I&D Reevaluation(s) Reevaluation #1: the patient was anesthetized with lidocaine and epinephrine. I probed 2 separate areas of what seemed to be abscess and there was mostly bloody drainage, there was very scant purulent drainage. I suspect most of it had drained through the opening over last couple of days. A sterile dressing was applied and the patient be discharged with antibiotics. Time: 19:57 Medications Administered Discontinued Medications Generic Name Dose Route Start Last Admin Trade Name Freq PRN Reason Stop Dose Admin Lidocaine/Epinephrine 10 ml 12/20/24 18:57 12/20/24 19:48 Lidocaine Hcl 1%/Epi 1:100,000 20 Ml Vial INFILTRATI 12/20/24 18:58 10 ml ONCE ONE Administration Medical Decision Making Medical Decision Making [facility] Narrative: 34-year-old male presents for evaluation of an abscess above his buttocks. He has had this in the past. He does appear to have a large, draining abscess. It has been draining for your or week and not getting any smaller. He has no fevers or chills, I do not suspect sepsis or bacteremia. Plan for I and D Differential Diagnosis Differential Diagnoses: The differential diagnosis associated with the presentation includes pilonidal abscess Sebaceous cyst Abscess Cellulitis Procedures Abscess I/D Site: other ( gluteal cleft) Side (if applicable): right Local Anesthetic: lidocaine 1% and with epi Amount of anesthesia used (mL): 7 Technique: incised with blade and ultrasound guided Amount of fluid expressed (mL): 5 Sent for culture/gram staining?: No Irrigation: No Packing used?: none Discharge Plan Discharge Clinical Impression: Pilonidal abscess Patient Disposition: Home, Self-Care Instructions: Abscess (ED) Additional Instructions: apply warm compresses every 4 hours for 10-15 minutes. Take both antibiotics as prescribed for 1 week. Return for new or worsening symptoms, especially if you develop fevers. I recommend changing the dressing once daily until the drainage stops Prescriptions: New doxycycline hyclate 100 mg tablet 100 mg PO BID Qty: 14 0RF cephalexin 500 mg tablet 500 mg PO QID Qty: 28 0RF No Action omeprazole 20 mg capsule,delayed release(DR/EC) 20 mg PO DAILY Qty: 30 0RF benzonatate 100 mg capsule 100 mg PO TID PRN (Reason: cough) Qty: 12 0RF albuterol sulfate 90 mcg/actuation HFA aerosol inhaler 2 puff inhalation Q4-6H PRN (Reason: shortness of breath or wheezing) Qty: 6.7 0RF cefuroxime axetil 250 mg tablet 250 mg PO BID 7 Days Qty: 14 0RF ibuprofen 400 mg tablet 400 mg PO Q6H PRN (Reason: pain) Qty: 14 0RF omeprazole 20 mg capsule,delayed release(DR/EC) 20 mg PO DAILY Qty: 14 0RF cephalexin 500 mg capsule 500 mg PO QID Qty: 14 0RF doxycycline monohydrate 100 mg capsule 100 mg PO BID 7 Days Qty: 14 0RF calcium polycarbophil [FiberCon] 625 mg tablet 625 mg PO DAILY 30 Days Qty: 30 2RF ibuprofen 800 mg tablet 800 mg PO Q8H Stand Alone Forms: Work/School Release Print Language: [place]ican
[2024-12-20] MEDS: Lidocaine HCl 1%/Epi 1:100,000 20 ML VIAL 10 ML INFILTRATI (19:48)
[2024-12-20 20:04] VITALS: BP 132/87; PULSE 77; RESP 16; TEMP 36.6; O2SAT 97
[2024-12-20 20:10] VITALS: BP 132/87; PULSE 77; RESP 16; TEMP 36.6; O2SAT 97
--- OUTSIDE RECORDS SUMMARY | 2024-12-20 22:23 | XMS_ITS | Encounter Summary ---
Author Organization [facility] Address [address] [place] [address] Phone Care Team Providers Care Freelance Operator Name Role Phone Dorina Gong MD Primary Care Provider [phone] Encounter Details Date Type Department Care Team (Late st Contact Info) Description 10/15/2016 Conversion Encounter [facility] [place] [address] [place] [address] Social History Tobacco Use Types Packs/Day Years Used Date Smoking Tobacco: Never Assessed Sex and Gender Information Value Date Recorded Sex Assigned at Not on file Legal Sex Male 4:15 PM EDT Gender Identity Not on file Sexual Orientation Not on file documented as of this encounter Plan of Treatment Not on file documented as of this encounter Visit Diagnoses Not on filedocumented in this encounter Care Teams Freelance Operator Relationship Specialty Start Date End Date Dorina Gong MD [address] [place] [address] PCP - General 10/09/16 04/29/22 documented as of this encounter
--- OUTSIDE RECORDS SUMMARY | 2024-12-20 22:23 | XMS_ITS | Clinical Summary ---
Author Organization [facility] Address [address] [place] [phone] Phone Care Team Providers Care Optical Advisor Name Role Phone Unavailable Primary Care Provider Unavailabl e Immunizations Immunization Administration Dates Next Due DTP 03/26/1995, 4,1992,05/14 DTaP 5 07/13/1996 Hep B, ped/adol 1992,1992,1992 Hib (PRP-T) 06/06/1993, 3,1992,03/26 IPV 07/13/1996, 4,1992,03/26 MMR 07/13/1996,06/06/1993 Meningococcal Conj (Menactra) MCV4P 11/10/2005 Td (adult) (MBL), 2 Lf tetan us toxoid, PF, adsorbed 06/28/2003 Family History Relation Name Status Comments Brother Alive Brother: Neurof ibromatosis Father Alive Father: Heart C ondition Half-Sister Alive Half sister (M) : Migraines Mother Alive Mother: Hyperte nsion, asthma Social History Tobacco Use Types Packs/Day Years Used Date Smoking Tobacco: Never Assessed Sex and Gender Information Value Date Recorded Sex Assigned at Not on file Legal Sex Male 4:15 PM EDT Gender Identity Not on file Sexual Orientation Not on file Plan of Treatment Health Maintenance Due Date Last Done Comments DTaP,Tdap,and Td Vaccines (6 - Tdap) 06/29/2003 06/28/2003, 07/13/1996, 03/26/1995, Additional history exists Varicella Vaccines (1 of 2 - 13+ 2-dose series) 01/12/2005 HPV Vaccines (1 - 3-dose SCDM series) 01/12/2019 Influenza Vaccines (#1) 2024 COVID-19 Vaccine ( season) 2024 Hepatitis B Vaccines Completed 1992, 1992, 1992 HIB Vaccines Completed 06/06/1993, 05/1992, 1992, Additional history exists IPV Vaccines Completed 07/13/1996, 09/30, 1992, Additional history exists MMR Vaccines Completed 07/13/1996, 06/06/1993 Meningococcal Vaccine Aged Out 11/10/2005 No fidelia artur eligible based on patient's age to complete this topic Hepatitis A Vaccines Aged Out No long er eligible based on patient's age to complete this topic Men B Vaccine Aged Out No longer elig ible based on patient's age to complete this topic Pneumococcal Vaccine Aged Out No long er eligible based on patient's age to complete this topic
== END 2024-12-20 20:10 | disposition home or self-care (01) ==
PROVIDERS: Emergency Provider Student in an Organized Health Care Education/Training Program; PCP Family Medicine
DX: L05.01 Pilonidal cyst with abscess (principal)
CPT/HCPCS: 10060; 99283; 99284; J2004